=== PATIENT | female | born 1960 | race Caucasian/White ===

== ENCOUNTER 2018-08-12 09:46 | Emergency (ER) | payer SELFPAY ==
[~2018-08-12] VITALS: Ht 170.2 cm; Wt 90.7 kg
[2018-08-12] MEDS ORDERED: MORPHINE SULFATE 4 MG/ML VIAL. IV ONE (10:30)
[2018-08-12] MEDS ORDERED: IV NORMAL SALINE 1000ML BAG 1,000 ML IV ONE (10:30)
[2018-08-12 10:45] LABS: BASO % 0 % (0-3); EOS # 0.1 x10^3/uL (0.0-0.7); EOS % 1 % (0-3); HEMATOCRIT 38.4 % (36.0-47.0); HEMOGLOBIN 13.4 g/dL (12.0-15.5); LYMPH # 2.4 x10^3/uL (1.0-4.8); LYMPH % 35 % (24-48); MEAN CORPUSCULAR HEMOGLOBIN 33 pg (25-35); MEAN CORPUSCULAR HGB CONC 35 g/dL (31-37); MEAN CORPUSCULAR VOLUME 96 fL (79-100); MONO # 0.3 x10^3/uL (0.0-1.1); MONO % 5 % (0-9); NEUT % 58 % (31-73); PLATELET COUNT 259 x10^3/uL (140-400); RED BLOOD COUNT 4.01 x10^6/uL (3.50-5.40); RED CELL DISTRIBUTION WIDTH 13.4 % (11.5-14.5); WHITE BLOOD COUNT 6.8 x10^3/uL (4.0-11.0)
[2018-08-12] MEDS ORDERED: LAMO100T PO (10:49)
[2018-08-12] MEDS ORDERED: MELO15TA23 PO (10:49)
[2018-08-12] MEDS ORDERED: HYDR25TA9 PO (10:49)
[2018-08-12] MEDS ORDERED: TRAZ150T49 PO (10:49)
[2018-08-12] MEDS ORDERED: FISH1CAP PO (10:49)
[2018-08-12] MEDS ORDERED: GARL10002 PO (10:49)
[2018-08-12] MEDS ORDERED: ALPR1TAB6 PO (10:49)
[2018-08-12] MEDS ORDERED: BUPR300T4 PO (10:49)
--- NOTE | 2018-08-12 10:51 | PHYS DOC ---
Past Medical History Past Medical History: No Pertinent History Past Surgical History: Other Additional Past Surgical Histo: Exp.lap.,L)Great toe bones removed. Additional Information: "Maybe 5 cigarettes a day, depending on the day." Alcohol Use: None Drug Use: Marijuana Social History Narrative: Last smoked about a month ago. Adult General Chief Complaint Chief Complaint: ABDOMINAL PAIN HPI HPI Patient is a 57 year old female who presents with abdominal pain. The patient states she has been having abdominal pain for the last 5 years. She has not seen a physician for this complaint. She states she has pain almost daily. Her pain is diffuse and not associated with eating food. She came to the ER today because over the last week her pain symptoms have worsened. She has no nausea or vomiting. She did have some constipation last week which has resolved with her last normal bowel movement being yesterday. Denies urinary symptoms. No flank pain. Her only surgical history is positive for prior laparoscopic surgery for ovarian cyst. Review of Systems Review of Systems Constitutional: Denies fever Eyes: Denies change in visual acuity HENT: Denies nasal congestion Respiratory: Denies cough or shortness of breath Cardiovascular: No additional information not addressed in HPI GI: as documented above : Denies dysuria Musculoskeletal: Denies back pain or joint pain Integument: Denies rash or skin lesions Neurologic: Denies headache Endocrine: Denies polyuria All other systems were reviewed and found to be within normal limits, except as documented in this note. Current Medications Current Medications Current Medications Medications (Trade) Dose Ordered Sig/Enoc Start Time Stop Time Status Last Admin Dose Admin Info (CONTRAST GIVEN -- Rx MONITORING) 1 each PRN DAILY PRN 08/12/18 11:00 08/14/18 10:59 Iohexol (Omnipaque 300 Mg/ml) 75 ml 1X ONCE 08/12/18 11:00 08/12/18 11:01 DC 08/12/18 11:11 75 ML Morphine Sulfate (Morphine Sulfate) 4 mg 1X ONCE 08/12/18 10:30 08/12/18 10:41 DC 08/12/18 11:02 4 MG Sodium Chloride 1,000 ml @ 1,000 mls/hr 1X ONCE 08/12/18 10:30 08/12/18 11:29 DC 08/12/18 11:00 1,000 MLS/HR Allergies Allergies Allergies Coded Allergies Type Severity Reaction Last Updated Verified levofloxacin Adverse Reaction Unknown Joint pain. 08/12/18 Yes Physical Exam Physical Exam Constitutional: Well developed, well nourished, no acute distress, non-toxic appearance HENT: Normocephalic, atraumatic, bilateral external ears normal, oropharynx moist Eyes: PERRLA, EOMI, conjunctiva normal Neck: Normal range of motion, no tenderness Cardiovascular:Heart rate regular rhythm, no murmur Lungs & Thorax: Bilateral breath sounds clear to auscultation Abdomen: Bowel sounds normal. Soft, diffusely tender but no guarding or rebound Skin: Warm, dry, no erythema Back: No tenderness Extremities: No edema Neurologic: Alert and oriented X 3 Psychologic: Affect normal Current Patient Data Vital Signs Vital Signs Date Time Temp Pulse Resp B/P (MAP) Pulse Ox O2 Delivery O2 Flow Rate FiO2 08/12/18 11:02 16 97 Room Air 08/12/18 10:12 98.1 93 165/80 (108) 98.1 Lab Values Laboratory Tests Test 08/12/18 10:28 White Blood Count 6.8 x10^3/uL (4.0-11.0) Red Blood Count 4.01 x10^6/uL (3.50-5.40) Hemoglobin 13.4 g/dL (12.0-15.5) Hematocrit 38.4 % (36.0-47.0) Mean Corpuscular Volume 96 fL (79-100) Mean Corpuscular Hemoglobin 33 pg (25-35) Mean Corpuscular Hemoglobin Concent 35 g/dL (31-37) Red Cell Distribution Width 13.4 % (11.5-14.5) Platelet Count 259 x10^3/uL (140-400) Neutrophils (%) (Auto) 58 % (31-73) Lymphocytes (%) (Auto) 35 % (24-48) Monocytes (%) (Auto) 5 % (0-9) Eosinophils (%) (Auto) 1 % (0-3) Basophils (%) (Auto) 0 % (0-3) Neutrophils # (Auto) 4.0 x10^3uL (1.8-7.7) Lymphocytes # (Auto) 2.4 x10^3/uL (1.0-4.8) Monocytes # (Auto) 0.3 x10^3/uL (0.0-1.1) Eosinophils # (Auto) 0.1 x10^3/uL (0.0-0.7) Basophils # (Auto) 0.0 x10^3/uL (0.0-0.2) Sodium Level 134 mmol/L (136-145) L Potassium Level 3.9 mmol/L (3.5-5.1) Chloride Level 97 mmol/L (98-107) L Carbon Dioxide Level 29 mmol/L (21-32) Anion Gap 8 (6-14) Blood Urea Nitrogen 10 mg/dL (7-20) Creatinine 0.9 mg/dL (0.6-1.0) Estimated GFR (Cockcroft-Gault) 65.0 Glucose Level 118 mg/dL (70-99) H Calcium Level 9.3 mg/dL (8.5-10.1) Total Bilirubin 0.2 mg/dL (0.2-1.0) Direct Bilirubin 0.1 mg/dL (0.0-0.2) Aspartate Amino Transferase (AST) 12 U/L (15-37) L Alanine Aminotransferase (ALT) 23 U/L (14-59) Alkaline Phosphatase 76 U/L (46-116) Total Protein 6.8 g/dL (6.4-8.2) Albumin 3.5 g/dL (3.4-5.0) Lipase 125 U/L (73-393) Laboratory Tests 08/12/18 10:28 Laboratory Tests 08/12/18 10:28 EKG EKG [] Radiology/Procedures Radiology/Procedures FINDINGS: Bilateral partially visualized are breast implants. Heart is normal in size. No pericardial or pleural effusion. Clear lung bases. Liver, spleen, pancreas, adrenals within normal limits. Single gallstone noted. No pericholecystic fluid or gallbladder wall thickening. No nephrolithiasis or hydronephrosis. No free pelvic fluid or ascites. No enlarged retroperitoneal, pelvic or inguinal adenopathy. No bowel obstruction. Normal appendix. Anteverted uterus. Urinary bladder is within normal limits. No suspicious bony lesion. IMPRESSION: 1. Cholelithiasis without imaging evidence of acute cholecystitis. Course & Med Decision Making Course & Med Decision Making Pertinent Labs and Imaging studies reviewed. (See chart for details) 10:30: Patient is seen and examined. She is in no acute distress. She is requesting evaluation for a chronic complaint. Standard abdominal pain workup is ordered. Medications for pain. 13:45: All results are reviewed. CT scan of the abdomen pelvis as documented above. Patient does have cholelithiasis. With further discussion, the patient does endorse that her symptoms are primarily worse after she eats food. Patient states she does not currently have insurance but she will after the first of the year. Patient is advised to follow-up at that time on an elective basis with general surgery for consideration of cholecystectomy. No additional acute cause of pain was identified today. Patient was also advised to return to the ER for any new or worsening symptoms, fever, severe pain, or change in her symptoms. Dragon Disclaimer Dragon Disclaimer This electronic medical record was generated, in whole or in part, using a voice recognition dictation system. Departure Departure Disposition: 01 HOME, SELF-CARE Admitting Physician: Other Condition: GOOD Scripts Hydrocodone/Apap 5-325 (NORCO 5-325 TABLET) 1 Each Tablet 1-2 EACH PO PRN Q6HRS PRN for PAIN, #15 as needed for pain Prov: CRISTO OSMAN DO 08/12/18 CRISTO OSMAN DO Aug 12, 2018 10:51
[2018-08-12 10:53] LABS: CALCIUM 9.3 mg/dL (8.5-10.1); CREATININE 0.9 mg/dL (0.6-1.0); POTASSIUM 3.9 mmol/L (3.5-5.1)
[2018-08-12 10:59] LABS: ALBUMIN 3.5 g/dL (3.4-5.0); DIRECT BILIRUBIN 0.1 mg/dL (0.0-0.2); TOTAL BILIRUBIN 0.2 mg/dL (0.2-1.0); TOTAL PROTEIN 6.8 g/dL (6.4-8.2)
[2018-08-12] MEDS ORDERED: IOHEXOL 300 MG/ML 100ML VIAL. IV ONE (11:00)
[2018-08-12] MEDS ORDERED: CONTRAST GIVEN. MC PRN (11:00)
--- NOTE | 2018-08-12 11:35 | RAD ---
PQRS Compliance statement: One or more of the following individualized dose reduction techniques were utilized for this examination: 1. Automated exposure control. 2. Adjustment of the mA and/or kV according to patient size. 3. Use of iterative reconstruction technique. Indication:ABD PAIN X 2 WEEKS TECHNIQUE: CT abdomen and pelvis with IV contrast with multiplanar reformats. COMPARISON: None FINDINGS: Bilateral partially visualized are breast implants. Heart is normal in size. No pericardial or pleural effusion. Clear lung bases. Liver, spleen, pancreas, adrenals within normal limits. Single gallstone noted. No pericholecystic fluid or gallbladder wall thickening. No nephrolithiasis or hydronephrosis. No free pelvic fluid or ascites. No enlarged retroperitoneal, pelvic or inguinal adenopathy. No bowel obstruction. Normal appendix. Anteverted uterus. Urinary bladder is within normal limits. No suspicious bony lesion. IMPRESSION: 1. Cholelithiasis without imaging evidence of acute cholecystitis. Electronically signed by: Zane Nicole DO (08/12/2018 11:32 AM) [id number]
[2018-08-12 13:11] LABS: BILIRUBIN,URINE NEGATIVE (NEG); CLARITY,URINE CLEAR; COLOR,URINE YELLOW; NITRITE,URINE NEGATIVE (NEG); PROTEIN,URINE NEGATIVE (NEG-TRACE); UROBILINOGEN,URINE 0.2 mg/dL (0.2 mg/dL)
[2018-08-12 13:30] VITALS: BP 146/82
[2018-08-12] MEDS ORDERED: HYDR-3164 PO (13:41)
[2018-08-12 13:51] LABS: BACTERIA,URINE 0 /HPF (0-FEW); RBC,URINE OCC /HPF (0-2); SQUAMOUS EPITHELIAL CELL,UR MOD /LPF; WBC,URINE OCC /HPF (0-4)
== END 2018-08-12 14:44 | disposition home or self-care (01) ==
LOC: ER 09:46
DX: K80.20 Calculus of gallbladder without cholecystitis without obstruction (principal); F17.210 Nicotine dependence, cigarettes, uncomplicated; Z88.1 Allergy status to other antibiotic agents
CPT/HCPCS: 36415; 74177; 80048; 80076; 81001; 83690; 85025; 96374; 99285; J2270; J7030; Q9967

== ENCOUNTER → 2018-10-22 | Day surgery (SDC) | payer BC ==
[~2018-10-22] VITALS: Ht 170.2 cm; Wt 92.5 kg
[~2018-10-22] MED LIST: ALPR1TAB6 PO; BUPIVAC MPF-EPI 0.5%-1:200000 30 ML VIAL. ONE; BUPR300T4 PO; DESFLURANE 31 TO 60 MINUTES IH ONE; DEXAMETHASONE SOD PHOS 20 MG/5 ML VIAL. ONE; FAMOTIDINE 20 MG/2 ML VIAL ONE; FISH1CAP PO; GARL10002 PO; GLYCOPYRROLATE 1 MG/5 ML VIAL. ONE; HYDR-2145 PO; HYDR-3164 PO; HYDROmorphone 2 MG/ML VIAL IV PRN; IOHEXOL 300 MG/ML 100ML VIAL. ONE; IPRATRPIUM/ALBUTEROL 0.5/2.5MG 3 ML NEBU. NEB ONE; IPRATRPIUM/ALBUTEROL 0.5/2.5MG 3 ML NEBU. ONE; IV RINGERS,LACTATED 1000ML 1,000 ML IV SCH; LAMO100T PO; LIDOCAINE 1% PF 2 ML VIAL. ID PRN; LIDOCAINE 2% PF Vial for OR 5 ML VIAL. ONE; MELO15TA23 PO; MORPHINE SULFATE 4 MG/ML VIAL. IV PRN; NEOSTIGMINE 10 MG/10 ML VIAL. ONE; ONDANSETRON PF 4 MG/2 ML VIAL. IV PRN; ONDANSETRON PF 4 MG/2 ML VIAL. ONE; OXYC1TAB15 PO; PROCHLORPERAZINE 10 MG/2 ML VIAL. IV PRN; PROPOFOL 20 ML IV ONE; ROCURONIUM 50 MG/5 ML VIAL. ONE; SUCCINYLCHOLINE 200 MG/10 ML VIAL. ONE; SURGICEL HEMOSTAT 4X8 EACH. ONE; TRAZ150T49 PO; ePHEDrine PF IN SALINE 50 MG/5 ML DISP.SYRIN IV ONE; fentaNYL PF VIAL 100 MCG/2 ML VIAL IV PRN; fentaNYL PF VIAL 100 MCG/2 ML VIAL ONE; oxyCODONE/APAP 5/325 1 TAB TABLET PO ONE; oxyCODONE/APAP 5/325 1 TAB TABLET PO PRN
--- NOTE | 2018-10-22 09:59 | PDOC4 ---
Operative Note Operative Note Date: 10/22/2018 Preoperative diagnosis: Chronic cholecystitis Postoperative diagnosis: Same Procedure: Laparoscopic cholecystectomy Specimen: Gallbladder Surgeon: Rich Dictation: Patient is 58-year-old female is had right upper quadrant abdominal pain nausea vomiting postprandial and a CT scan showing gallstones with mildly thickened gallbladder wall. Procedure of laparoscopic cholecystectomy was explained to the patient in detail risk benefits were also discussed including bleeding infection injury to intra-abdominal contents possibly necessitating further open operations. The patient seemed to understand and gave both verbal and written consent had procedure performed. Patient was taken to the operating room placed in supine position general anesthesia was initiated once patient was asleep and intubated her abdomen was prepped and draped usual sterile fashion using ChloraPrep. The umbilicus was injected with quarter percent Marcaine with epinephrine incision was made 11 blade scalpel rubbers needle was placed within the abdomen creating pneumoperitoneum once this was complete 11 mm port was placed and a 5 mm camera was placed within the abdomen. A 5 mm port was placed in the epigastrium a 5 mm port was placed in the right lateral abdomen and one in the right mid abdomen all under direct visualization the dome of the gallbladder was grasped and retracted cephalad exposing the triangle that here tissues the triangle were taken down bluntly dissection exposing the cystic duct and cystic artery both were doubly clipped and transected the gallbladder was taken off the liver with hook electrocautery placed in Endo Catch bag and removed from the umbilicus. The right upper quadrant was irrigated and suctioned dry hemostasis was deemed to be appropriate and the pneumoperitoneum was reduced all ports were removed fascial defect at the umbilicus closed with [id number] 0 Vicryl suture and the skin was reapproximated all port sites with 40 subarticular Monocryl Mastisol Steri-Strips and island dressings were applied. Patient was awakened and extubated in the operating room taken to recovery in stable condition all sponge instrument needle counts listed as correct S Dela Cruz blood loss 5 mL ANAMIKA CORTES MD Oct 22, 2018 09:59
--- NOTE | 2018-10-22 10:00 | DISCH ---
DISCHARGE INSTRUCTIONS Condition on Discharge Condition on Discharge: Stable Activity After Discharge Activity Instructions for Disc: Avoid exertion Other activity instructions: no lifting more than 20 pounds for 2 weeks Diet after Discharge Diet after Discharge: Low Fat Wound Incision Care Other wound/incision instructi: May shower in 24 hours Contacting the after DC Call your doctor for: If your condition worsens Follow-Up Follow up with: Dr. Cortes in 2 weeks ANAMIKA CORTES MD Oct 22, 2018 10:00
[2018-10-22] MEDS: fentaNYL PF VIAL 100 MCG/2 ML VIAL IV PRN ×4 (10:15→10:36)
[2018-10-22 12:00] VITALS: BP 122/61
--- NOTE | 2018-10-23 16:09 | PATHOLOGY ---
[facility] Accession Number: [id number] . 01 Material submitted: . GALLBLADDER . 01 Clinical history: . Cholelithiasis. . 02 Diagnosis: Gallbladder, laparoscopic cholecystectomy: - Cholelithiasis. 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 (JPM:pv design and installation technician; 10/23/2018) MBR/10/23/2018 . 02 Comment: There is no evidence of malignancy. (JPM:pv design and installation technician; 10/23/2018) . 02 Electronically signed: . Beck Cagle MD, Pathologist NPI- [id number] . 01 Gross description: . Received in formalin labeled "Izabel Gannon, gallbladder" is an intact cholecystectomy specimen measuring 7.0 x 2.6 x 2.5 cm. The serosa is pink-currie and focally hemorrhagic. The specimen is opened to reveal opaque yellow-currie thick bile with numerous multifaceted calculi measuring in aggregate 4.0 x 3.5 x 1.0 cm and ranging from 0.1-0.7 cm in greatest dimension. The gallbladder mucosa is pink-white and trabeculated with focal hemorrhagic areas. The wall thickness ranges from 0.1-0.3 cm. No polyps or masses are grossly identified. Boilermaker'S Assistant sections of the fundus and body and the cystic duct margin are submitted in cassette A1. ([facility] [place]; 10/22/2018) SYC/SYC . 02 Pathologist provided ICD-10: K80.10 . 02 CPT . 894999 Specimen Comment: A courtesy copy of this report has been sent to Specimen Comment: [phone], . Specimen Comment: Report sent to / DR SERRA Specimen Comment: A duplicate report has been generated due to demographic updates. Performed at: 01 [facility] [address] [facility] [address] [place], [place] [id number] MD Flaco Fowler MD Phone: [phone] Performed at: 02 [facility] [address] [place], [place] [id number] MD Beck Cagle MD Phone: [phone]
== END | disposition home or self-care (01) ==
LOC: SURG 08:01
PROVIDERS: ATTEND Surgery
DX: K80.10 Calculus of gallbladder with chronic cholecystitis without obstruction (principal); Z88.1 Allergy status to other antibiotic agents; Z79.899 Other long term (current) drug therapy; Z98.890 Other specified postprocedural states; Z82.49 Family history of ischemic heart disease and other diseases of the circulatory system; Z83.3 Family history of diabetes mellitus; Z82.61 Family history of arthritis; Z82.0 Family history of epilepsy and other diseases of the nervous system; F17.210 Nicotine dependence, cigarettes, uncomplicated; Z84.1 Family history of disorders of kidney and ureter; F12.10 Cannabis abuse, uncomplicated
CPT/HCPCS: 47562; A7015; J0330; J0696; J1100; J2001; J2270; J2405; J2704; J2710; J3010; J3490; J7030; J7620; Q9967

== ENCOUNTER 2018-10-23 13:33 | Emergency (ER) | payer BC ==
[~2018-10-23] VITALS: Ht 170.2 cm; Wt 90.7 kg
[~2018-10-23 13:33] MED LIST changes: -BUPIVAC MPF-EPI 0.5%-1:200000 30 ML VIAL. ONE; -DESFLURANE 31 TO 60 MINUTES IH ONE; -DEXAMETHASONE SOD PHOS 20 MG/5 ML VIAL. ONE; -FAMOTIDINE 20 MG/2 ML VIAL ONE; -GLYCOPYRROLATE 1 MG/5 ML VIAL. ONE; -HYDROmorphone 2 MG/ML VIAL IV PRN; -IOHEXOL 300 MG/ML 100ML VIAL. ONE; -IPRATRPIUM/ALBUTEROL 0.5/2.5MG 3 ML NEBU. NEB ONE; -IPRATRPIUM/ALBUTEROL 0.5/2.5MG 3 ML NEBU. ONE; -IV RINGERS,LACTATED 1000ML 1,000 ML IV SCH; -LIDOCAINE 1% PF 2 ML VIAL. ID PRN; -LIDOCAINE 2% PF Vial for OR 5 ML VIAL. ONE; -MORPHINE SULFATE 4 MG/ML VIAL. IV PRN; -NEOSTIGMINE 10 MG/10 ML VIAL. ONE; -ONDANSETRON PF 4 MG/2 ML VIAL. IV PRN; -ONDANSETRON PF 4 MG/2 ML VIAL. ONE; -PROCHLORPERAZINE 10 MG/2 ML VIAL. IV PRN; -PROPOFOL 20 ML IV ONE; -ROCURONIUM 50 MG/5 ML VIAL. ONE; -SUCCINYLCHOLINE 200 MG/10 ML VIAL. ONE; -SURGICEL HEMOSTAT 4X8 EACH. ONE; -ePHEDrine PF IN SALINE 50 MG/5 ML DISP.SYRIN IV ONE; -fentaNYL PF VIAL 100 MCG/2 ML VIAL IV PRN; -fentaNYL PF VIAL 100 MCG/2 ML VIAL ONE; -oxyCODONE/APAP 5/325 1 TAB TABLET PO ONE; -oxyCODONE/APAP 5/325 1 TAB TABLET PO PRN
[2018-10-23 17:06] LABS: BILIRUBIN,URINE NEGATIVE (NEG); CLARITY,URINE CLEAR; COLOR,URINE YELLOW; NITRITE,URINE NEGATIVE (NEG); PH,URINE 6.5; PROTEIN,URINE NEGATIVE (NEG-TRACE)
--- NOTE | 2018-10-23 17:12 | PHYS DOC ---
Past Medical History Past Medical History: Bipolar Past Surgical History: Other Additional Past Surgical Histo: Exp.lap.,L)Great toe bones removed.; GALL BLADDER REMOVED 10-22-18 Alcohol Use: None Drug Use: Marijuana Adult General Chief Complaint Chief Complaint: URINARY RETENTION [facility] HPI Patient is a 58 year old female who presents with patient had a cholecystectomy yesterday by Dr. Villanueva. It was outpatient. Last night at 2300 she was able to urinate but she has not been able to urinate since then. Patient states she has generalized abdominal pressure and bloating. Patient rates her pain an 8 out of 10. She denies fever. She states that she's been eating and drinking and not vomiting. Patient states she last took a pain pill at 06 30 this morning. I did ask if patient wanted more pain medication and she refused any medication at this time. Review of Systems Review of Systems Constitutional: Denies fever or chills [] Eyes: Denies change in visual acuity, redness, or eye pain [] HENT: Denies nasal congestion or sore throat [] Respiratory: Denies cough or shortness of breath [] Cardiovascular: No additional information not addressed in HPI [] GI: Denies abdominal pain, nausea, vomiting, bloody stools or diarrhea [] : dysuria. Denies hematuria [] Musculoskeletal: Denies back pain or joint pain [] Integument: Denies rash or skin lesions [] Neurologic: Denies headache, focal weakness or sensory changes [] All other systems were reviewed and found to be within normal limits, except as documented in this note. Allergies Allergies Allergies Coded Allergies Type Severity Reaction Last Updated Verified levofloxacin Adverse Reaction Unknown Joint pain. 10/22/18 Yes Physical Exam Physical Exam Constitutional: Well developed, well nourished, no acute distress, non-toxic appearance. [] HENT: Normocephalic, atraumatic, bilateral external ears normal, oropharynx moist, no oral exudates, nose normal. [] Eyes: PERRLA, EOMI, conjunctiva normal, no discharge. [] Neck: Normal range of motion, no tenderness, supple, no stridor. [] Cardiovascular:Heart rate regular rhythm, no murmur [] Lungs & Thorax: Bilateral breath sounds clear to auscultation [] Abdomen: Bowel sounds normal, soft, no tenderness, no masses, no pulsatile masses. Urinary retention. [] Skin: Warm, dry, no erythema, no rash. [] Back: No tenderness, no CVA tenderness. [] Extremities: No tenderness, no cyanosis, no clubbing, ROM intact, no edema. [] Neurologic: Alert and oriented X 3, normal motor function, normal sensory function, no focal deficits noted. [] Psychologic: Affect normal, judgement normal, mood normal. [] Current Patient Data Vital Signs Vital Signs Date Time Temp Pulse Resp B/P (MAP) Pulse Ox O2 Delivery O2 Flow Rate FiO2 10/23/18 16:00 98.0 89 16 137/82 (100) 98 Room Air 98.0 Lab Values Laboratory Tests Test 10/23/18 16:53 Urine Collection Type Unknown Urine Color Yellow Urine Clarity Clear Urine pH 6.5 Urine Specific [place] 1.020 Urine Protein Negative mg/dL (NEG-TRACE) Urine Glucose (UA) Negative mg/dL (NEG) Urine Ketones (Stick) Negative mg/dL (NEG) Urine Blood Negative (NEG) Urine Nitrite Negative (NEG) Urine Bilirubin Negative (NEG) Urine Urobilinogen Dipstick 1.0 mg/dL (0.2 mg/dL) Urine Leukocyte Esterase Negative (NEG) Urine RBC 1-2 /HPF (0-2) Urine WBC 1-4 /HPF (0-4) Urine Squamous Epithelial Cells Few /LPF Urine Bacteria 0 /HPF (0-FEW) Urine Hyaline Casts Few /HPF Urine Mucus Mod /LPF EKG EKG [] Radiology/Procedures Radiology/Procedures [] Course & Med Decision Making Course & Med Decision Making Patient is a 58 year old female who presents with patient had a cholecystectomy yesterday by Dr. Villanueva. It was outpatient. Last night at 2300 she was able to urinate but she has not been able to urinate since then. Patient states she has generalized abdominal pressure and bloating. Patient rates her pain an 8 out of 10. She denies fever. She states that she's been eating and drinking and not vomiting. Patient states she last took a pain pill at 06 30 this morning. I did ask if patient wanted more pain medication and she refused any medication at this time. Alert and oriented. Denies any nausea vomiting or abdominal pain just general discomfort and pressure. Incisions are not draining and they're covered with surgical bandage which I did not take off. Abdomen is soft but slightly distended. Patient denies any nausea, vomiting , diarrhea, fever, chest pain, shortness of air. Patient is bladder scanned and there is 262 mL in her bladder. Patient has a Bedoya catheter placed with a leg bag. I have talked to Dr. Matias who is on-call for Dr. Villanueva and he states to place the Bedoya Catheter with leg bag and to call urology for follow up. I have spoken to Dr Larios from Urology and he states to have the patient call the office on Friday for follow up. Patient states the catheter is uncomfortable she does not want to use a catheter. I told the patient that if she can't urinate that she will Back in the ER to have another visit and another catheter placed and they want to do the same thing. Patient is given some viscous lidocaine to apply to the area. Bedoya catheter is draining. Dragon Disclaimer Dragon Disclaimer This electronic medical record was generated, in whole or in part, using a voice recognition dictation system. Departure Departure Impression: Primary Impression: Urinary retention Disposition: 01 HOME, SELF-CARE Condition: STABLE Referrals: ACE SERRA MD (PCP) JENA LARIOS MD Patient Instructions: Urinary Retention, Acute, Female Additional Instructions: Call urology on Friday. Drink plenty of fluids. Call if bladder not draining appropriately or fever or nausea or vomiting. DERIK BARROW APRN Oct 23, 2018 17:12
[2018-10-23 17:27] LABS: BACTERIA,URINE 0 /HPF (0-FEW); HYALINE CASTS, URINE FEW /HPF; SQUAMOUS EPITHELIAL CELL,UR FEW /LPF
[2018-10-23] MEDS ORDERED: LIDOCAINE 2% VISCOUS 15 ML SOLUTION. SWSW ONE (17:45)
[2018-10-23 18:00] VITALS: BP 151/85
== END 2018-10-23 18:09 | disposition home or self-care (01) ==
LOC: ER 13:33
DX: R33.9 Retention of urine, unspecified (principal); R14.0 Abdominal distension (gaseous); F31.9 Bipolar disorder, unspecified; Z90.49 Acquired absence of other specified parts of digestive tract; Z88.1 Allergy status to other antibiotic agents
CPT/HCPCS: 51702; 81001; 99284

== ENCOUNTER 2019-01-26 16:00 | Inpatient (IN) | payer BC ==
[~2019-01-26] VITALS: Ht 170.2 cm; Wt 89.1 kg
[2019-01-26] MEDS ORDERED: fentaNYL PF VIAL 100 MCG/2 ML VIAL IV PRN (19:30)
[2019-01-26 21:07] VITALS: BP 141/84
--- NOTE | 2019-01-26 21:22 | RAD ---
PORTABLE CHEST 1V History: CHEST PAIN, SOA, LEG SWELLING X1 DAY. No comparison. There are breast implants. No evidence of pneumothorax or focal infiltrate. No large effusion. Small nodular density at the right midlung may represent a granuloma. Regional skeleton appears grossly intact IMPRESSION: 1. No consolidating infiltrate. 2. Small dense nodule right midlung. This may represent a granuloma, if any prior outside chest x-rays are available that would be helpful for comparison. Electronically signed by: Baljeet Anderson MD (01/26/2019 9:19 PM) [facility]
[2019-01-26 21:29] LABS: ALBUMIN 4.3 g/dL (3.4-5.0); CALCIUM 9.6 mg/dL (8.5-10.1); CREATININE 0.8 mg/dL (0.6-1.0); DIRECT BILIRUBIN 0.1 mg/dL (0.0-0.2); GFR 74.2; POTASSIUM 4.3 mmol/L (3.5-5.1); TOTAL BILIRUBIN 0.4 mg/dL (0.2-1.0); TOTAL PROTEIN 7.7 g/dL (6.4-8.2)
[2019-01-26] MEDS ORDERED: oxyCODONE/APAP 5/325 1 TAB TABLET PO PRN (22:00)
[2019-01-26] MEDS ORDERED: oxyCODONE IR 5 MG TABLET PO PRN (22:15)
[2019-01-26] MEDS ORDERED: NICOTINE 14MG PATCH. TD PRN (22:30)
[2019-01-26] MEDS: traZODone 50 MG TABLET. PO SCH (22:32)
[2019-01-26] MEDS: buPROPion SR 150 MG TABLET.SA PO SCH ×2 (22:33→22:43)
[2019-01-26] MEDS: ALPRAZolam 1 MG TABLET PO PRN (22:37)
--- NOTE | 2019-01-26 22:54 | PDOC1 ---
History and Physical Date of Admission Date of Admission DATE: 01/26/19 TIME: 22:46 Source Source: Patient History of Present Illness History of Present Illness chest pain, left sided with pressure, pain 6/10, pain worse with exertion, some pain with movement, but she consistently described it as pressure. and deep or dull pain,. ; Pain to the left side of her chest, does not radiate to neck, she had taken percocets a long time ago after surgery adn she reports that is just made her feel anxious. no nausea, no diaphoresis. Past Medical History Cardiovascular: No pertinent hx Pulmonary: No pertinent hx GI: No pertinent hx Heme/Onc: No pertinent hx Past Surgical History Past Surgical History: Cholecystectomy Family History Family History: Cancer, Diabetes, Heart Disease Family History: Parent, Grandparents Social History Smoke: <1 pack per day ALCOHOL: rare Drugs: None Current Medications Current Medications Current Medications Fentanyl Citrate (Fentanyl 2ml Vial) 50 mcg PRN Q1HR PRN IV PAIN; Start 01/26/19 at 19:30; Stop 01/27/19 at 19:29 Alprazolam (Xanax) 1 mg PRN Q6HRS PRN PO ANXIETY / AGITATION Last administered on 01/26/19at 22:37; Start 01/26/19 at 22:00 Hydrochlorothiazide (Hydrodiuril) 25 mg DAILY PO ; Start 01/27/19 at 09:00 Oxycodone/ Acetaminophen (Percocet 5/325) 1 tab PRN Q6HRS PRN PO SEVERE PAIN; Start 01/26/19 at 22:00; Stop 01/26/19 at 22:43; Status DC Lamotrigine (LaMICtal) 100 mg DAILY PO ; Start 01/27/19 at 09:00 Meloxicam (Mobic) 15 mg DAILY PO ; Start 01/27/19 at 09:00 Trazodone HCl (Desyrel) 150 mg QHS PO Last administered on 01/26/19at 22:32; Start 01/26/19 at 23:00 Bupropion HCl (Wellbutrin Sr) 150 mg BID PO ; Start 01/26/19 at 23:00; Stop 01/27/19 at 09:00 Oxycodone HCl (Roxicodone) 10 mg PRN Q6HRS PRN PO SEVERE PAIN; Start 01/26/19 at 22:15; Stop 01/26/19 at 22:43; Status DC Bupropion HCl (Wellbutrin Sr) 150 mg DAILY PO ; Start 01/27/19 at 09:00; Status UNV Lidocaine (Lidoderm) 1 patch 1X STAT TD ; Start 01/26/19 at 22:28; Stop 01/26/19 at 22:29; Status UNV Nicotine (Nicoderm Cq 14mg) 1 patch PRN DAILY PRN TD SMOKING CESSATION; Start 01/26/19 at 22:30; Status UNV Active Scripts Active Reported Percocet 5-325 Mg Tablet (Oxycodone/Acetaminophen) 1 Each Tablet 1-2 Tab PO PRN Q6HRS PRN LAST DOSE GIVEN: Fish Oil 1,200 Mg Fish Oil (Fish Oil/Dha/Epa) 1 Each Capsule 1 Each PO Garlic 1,000 Mg Capsule 1,000 Mg PO Hydrochlorothiazide Tablet (Hydrochlorothiazide) 25 Mg Tablet 25 Mg PO DAILY Bupropion Xl (Bupropion Hcl) 300 Mg Tab.er.24h 300 Mg PO Lamotrigine 100 Mg Tablet 100 Mg PO DAILY Alprazolam 1 Mg Tablet 1 Mg PO PRN Q6HRS PRN Meloxicam 15 Mg Tablet 15 Mg PO DAILY Trazodone Hcl 150 Mg Tablet 150 Mg PO HS Allergies Allergies: Coded Allergies: levofloxacin (Verified Adverse Reaction, Unknown, Joint pain., 10/22/18) ROS General: No: Chills, Fatigue, Malaise, Appetite, Other PSYCHOLOGICAL ROS: YES: Anxiety; No: Behavioral Disorder, Concentration difficultie, Decreased libido, Depression, Disorientation, Hallucinations, Hostility, Irritablity, Memory difficulties, Mood Swings, Obsessive thoughts, Physical abuse, Sexual abuse, Sleep disturbances, Suicidal ideation, Other Eyes: No Blurry vision, No Decreased vision, No Double vision, No Dry eyes, No Excessive tearing, No Eye Pain, No Itchy Eyes, No Loss of vision, No Photophobia, No Scotomata, No Uses contacts, No Uses glasses, No Other HEENT: No: Heacaches, Visual Changes, Hearing change, Nasal congestion, Nasal discharge, Oral lesions, Sinus pain, Sore Throat, Epistaxis, Sneezing, Snoring, Tinnitus, Vertigo, Vocal changes, Other Respiratory: No: Cough, Hemoptysis, Orthopnea, Pleuritic Pain, Shortness of breath, SOB with excertion, Sputum Changes, Stridor, Tachypnea, Wheezing, Other Cardiovascular: yes Chest Pain Gastrointestinal: No Nausea, No Vomiting, No Abdominal Pain, No Diarrhea, No Constipation, No Melena, No Hematochezia, No Other Genitourinary: No Dysuria, No Frequency, No Incontinence, No Hematuria, No Retention, No Discharge, No Urgency, No Pain, No Flank Pain, No Other, No , No , No , No , No , No , No Musculoskeletal: No Gait Disturbance, No Joint Pain, No Joint Stiffness, No Joint Swelling, No Muscle Pain, No Muscular Weakness, No Pain In:, No Swelling In:, No Other Neurological: No Behavorial Changes, No Bowel/Bladder ControlChng, No Confusion, No Dizziness, No Gait Disturbance, No Headaches, No Impaired Coord/balance, No Memory Loss, No Numbness/Tingling, No Seizures, No Speech Problems, No Tremors, No Visual Changes, No Weakness, No Other Skin: No Dry Skin, No Eczema, No Hair Changes, No Lumps, No Mole Changes, No Mottling, No Nail Changes, No Pruritus, No Rash, No Skin Lesion Changes, No Other, No Acne Physical Exam General: Alert, Cooperative, mild distress HEENT: Atraumatic, PERRLA, Mucous membr. moist/pink Lungs: Clear to auscultation Heart: S1S2, no gallops, no murmurs Abdomen: Normal bowel sounds, Soft Extremities: No cyanosis, Normal pulses Skin: No breakdown Neuro: Normal speech, Sensation intact, Cranial nerves 3-12 NL Psych/Mental Status: Mood NL Vitals Vitals Vital Signs Date Time Temp Pulse Resp B/P (MAP) Pulse Ox O2 Delivery O2 Flow Rate FiO2 01/26/19 22:10 Room Air 01/26/19 21:07 97.6 78 18 141/84 (103) 97 97.6 Labs Labs Laboratory Tests Test 01/26/19 17:35 01/26/19 22:20 Sodium Level 127 mmol/L (136-145) Potassium Level 4.3 mmol/L (3.5-5.1) Chloride Level 91 mmol/L (98-107) Carbon Dioxide Level 31 mmol/L (21-32) Anion Gap 5 (6-14) Blood Urea Nitrogen 9 mg/dL (7-20) Creatinine 0.8 mg/dL (0.6-1.0) Estimated GFR (Cockcroft-Gault) 74.2 Glucose Level 114 mg/dL (70-99) Calcium Level 9.6 mg/dL (8.5-10.1) Total Bilirubin 0.4 mg/dL (0.2-1.0) Direct Bilirubin 0.1 mg/dL (0.0-0.2) Aspartate Amino Transf (AST/SGOT) 20 U/L (15-37) Alanine Aminotransferase (ALT/SGPT) 20 U/L (14-59) Alkaline Phosphatase 84 U/L (46-116) Troponin I Quantitative 0.019 ng/mL (0.000-0.055) 0.021 ng/mL (0.000-0.055) Total Protein 7.7 g/dL (6.4-8.2) Albumin 4.3 g/dL (3.4-5.0) Lipase 76 U/L (73-393) Laboratory Tests Test 01/26/19 17:35 01/26/19 22:20 Sodium Level 127 mmol/L (136-145) Potassium Level 4.3 mmol/L (3.5-5.1) Chloride Level 91 mmol/L (98-107) Carbon Dioxide Level 31 mmol/L (21-32) Anion Gap 5 (6-14) Blood Urea Nitrogen 9 mg/dL (7-20) Creatinine 0.8 mg/dL (0.6-1.0) Estimated GFR (Cockcroft-Gault) 74.2 Glucose Level 114 mg/dL (70-99) Calcium Level 9.6 mg/dL (8.5-10.1) Total Bilirubin 0.4 mg/dL (0.2-1.0) Direct Bilirubin 0.1 mg/dL (0.0-0.2) Aspartate Amino Transf (AST/SGOT) 20 U/L (15-37) Alanine Aminotransferase (ALT/SGPT) 20 U/L (14-59) Alkaline Phosphatase 84 U/L (46-116) Troponin I Quantitative 0.019 ng/mL (0.000-0.055) 0.021 ng/mL (0.000-0.055) Total Protein 7.7 g/dL (6.4-8.2) Albumin 4.3 g/dL (3.4-5.0) Lipase 76 U/L (73-393) VTE Prophylaxis Ordered VTE Prophylaxis Devices: No VTE Pharmacological Prophylaxi: Yes Assessment/Plan Assessment/Plan left sided chest pain, try lidoderm patch for reproducible component, she declines opiates if avail nitro given in ER and BP dropped angina, r/o ACS tobacco use disorder obese, bMI 30 JOEL SHOEMAKER MD Jan 26, 2019 22:54
[2019-01-26] MEDS ORDERED: LIDOCAINE (700MG/PATCH) PATCH. TD ONE (23:00)
[2019-01-26] MEDS ORDERED: NICOTINE POLACRILEX 2MG GUM PACKAGE of 12. BC PRN (23:00)
[2019-01-26 23:19] LABS: D-DIMER < 0.27 ug/mlFEU (0.00-0.50); PARTIAL THROMBOPLASTIN TIME 29 SEC (24-38); PROTHROMBIN TIME PATIENT 11.6 SEC (11.7-14.0)
[2019-01-26 23:22] LABS: BILIRUBIN,URINE NEGATIVE (NEG); CLARITY,URINE CLEAR; COLOR,URINE YELLOW
[2019-01-26 23:23] LABS: BACTERIA,URINE 0 /HPF (0-FEW); NITRITE,URINE NEGATIVE (NEG); PROTEIN,URINE NEGATIVE (NEG-TRACE); RBC,URINE 0 /HPF (0-2); SQUAMOUS EPITHELIAL CELL,UR FEW /LPF; UROBILINOGEN,URINE 0.2 mg/dL (0.2 mg/dL); WBC,URINE RARE /HPF (0-4)
[2019-01-26 23:27] LABS: BASO # 0.1 x10^3/uL (0.0-0.2); BASO % 0 % (0-3); EOS % 0 % (0-3); HEMATOCRIT 42.5 % (36.0-47.0); HEMOGLOBIN 14.4 g/dL (12.0-15.5); LYMPH # 3.3 x10^3/uL (1.0-4.8); LYMPH % 27 % (24-48); MEAN CORPUSCULAR HEMOGLOBIN 32 pg (25-35); MEAN CORPUSCULAR HGB CONC 34 g/dL (31-37); MEAN CORPUSCULAR VOLUME 95 fL (79-100); MONO # 0.7 x10^3/uL (0.0-1.1); MONO % 6 % (0-9); NEUT # 8.1 x10^3uL (1.8-7.7); NEUT % 67 % (31-73); PLATELET COUNT 328 x10^3/uL (140-400); RED BLOOD COUNT 4.48 x10^6/uL (3.50-5.40); RED CELL DISTRIBUTION WIDTH 13.2 % (11.5-14.5); WHITE BLOOD COUNT 12.2 x10^3/uL (4.0-11.0)
[2019-01-26] MEDS: ENOXAPARIN 40 MG/0.4 ML SYRINGE. SQ SCH (23:30)
[2019-01-26 23:55] VITALS: BP 123/68
[2019-01-27 02:11] LABS: BASO % 0 % (0-3); EOS # 0.1 x10^3/uL (0.0-0.7); EOS % 1 % (0-3); HEMATOCRIT 38.5 % (36.0-47.0); LYMPH # 4.6 x10^3/uL (1.0-4.8); LYMPH % 46 % (24-48); MEAN CORPUSCULAR HEMOGLOBIN 32 pg (25-35); MEAN CORPUSCULAR HGB CONC 34 g/dL (31-37); MEAN CORPUSCULAR VOLUME 96 fL (79-100); MONO # 0.7 x10^3/uL (0.0-1.1); MONO % 7 % (0-9); NEUT # 4.7 x10^3uL (1.8-7.7); NEUT % 46 % (31-73); PLATELET COUNT 286 x10^3/uL (140-400); RED BLOOD COUNT 4.01 x10^6/uL (3.50-5.40); RED CELL DISTRIBUTION WIDTH 13.2 % (11.5-14.5); WHITE BLOOD COUNT 10.1 x10^3/uL (4.0-11.0)
[2019-01-27 02:24] LABS: ALBUMIN 3.6 g/dL (3.4-5.0); ALBUMIN/GLOBULIN RATIO 1.3 (1.0-1.7); CALCIUM 8.8 mg/dL (8.5-10.1); CREATININE 0.7 mg/dL (0.6-1.0); GFR 86.6; POTASSIUM 3.5 mmol/L (3.5-5.1); TOTAL BILIRUBIN 0.5 mg/dL (0.2-1.0); TOTAL PROTEIN 6.4 g/dL (6.4-8.2)
[2019-01-27 02:28] LABS: CHOLESTEROL/HDL RATIO 3.4
[2019-01-27 03:54] VITALS: BP 113/75
[2019-01-27 07:00] VITALS: BP 110/63
--- NOTE | 2019-01-27 07:37 | EKG ---
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 Electronically Signed On 01-29-2019 9:46:14 CDT by Johnathon Eastman
[2019-01-27] MEDS ORDERED: buPROPion SR 150 MG TABLET.SA PO SCH ×2 (09:00→21:00)
[2019-01-27] MEDS: buPROPion SR 150 MG TABLET.SA PO SCH ×2 (09:00→11:42)
--- NOTE | 2019-01-27 09:45 | PDOC2 ---
CARDIAC CONSULT DATE OF CONSULT Date of Consult DATE: 01/27/19 TIME: 09:24 REASON FOR CONSULT Reason for Consult: Chest pain REFERRING PHYSICIAN Referring Physician: Jany SOURCE Source: Chart review, Patient HISTORY OF PRESENT ILLNESS HISTORY OF PRESENT ILLNESS This is a pleasant 58 yo female admitted for complains of chest pain and diarrhea. Reports that she has been having some pain around her breast implants and actually reproducible with palpation to her anterior chest and and breast circumscribe region. She is supposed to have MRI for her breast implant to see if there is any defect or leakage and she has been anxious about this in the last 3 days. She has been having this chest pain for the last 4 yrs blaming it on her breast implant and it is mostly tightness particularly when taking a deep breath. No KLEIN or exertional chest pain and able to do her ADLs without difficulty. Yesterday afternoon she had 6 diarrheal stools with last 2 being watery lasted for 2 hours. She felt exhausted after that and that is when her SOA increased and also had some chest tightness and nausea. Denies any jaw tightness or arm heaviness. No changes in her diet. She does feel tired midday most of the time and was told before that she was noted to have stops breathing at night and snores a lot. Never been told of KATHI. She smokes tobacco othe rwise no ETOH or recreational drugs. Denies any falls, injury, MVA, CAD, VTE. Denies any palpitations. No fever, chills or any recent antibiotic therapy. PAST MEDICAL HISTORY Cardiovascular: HTN CENTRAL NERVOUS SYSTEM: Other (No pertinent history) GI: No pertinent hx Heme/Onc: No pertinent hx Psych: Anxiety Musculoskeletal: Osteoarthritis Rheumatologic: No pertinent hx Infectious disease: No pertinent hx ENT: No pertinent hx Renal/: No pertinent hx Endocrine: No pertinent hx Dermatology: No pertinent hx PAST SURGICAL HISTORY Past Surgical History: Cholecystectomy (09/2018), Other (toe surgery; oral surgery;ovarian surgery; bilateral breast implants) FAMILY HISTORY Family History: Heart Disease (mother) SOCIAL HISTORY Smoke: <1 pack per day (on and off since she was 18 yo) ALCOHOL: none Drugs: None Lives: with Family CURRENT MEDICATIONS CURRENT MEDICATIONS Current Medications Medications (Trade) Dose Ordered Sig/Enoc Route PRN Reason Start Time Stop Time Status Last Admin Dose Admin Alprazolam (Xanax) 1 mg PRN Q6HRS PRN PO ANXIETY / AGITATION 01/26/19 22:00 01/26/19 22:37 Trazodone HCl (Desyrel) 150 mg QHS PO 01/26/19 23:00 01/26/19 22:32 Lidocaine (Lidoderm) 1 patch 1X ONCE TD 01/26/19 23:00 01/26/19 23:01 DC 01/26/19 22:59 Enoxaparin Sodium (Lovenox 40mg Syringe) 40 mg QHS SQ 01/26/19 23:00 01/26/19 23:30 ALLERGIES ALLERGIES: Coded Allergies: levofloxacin (Verified Adverse Reaction, Unknown, Joint pain., 10/22/18) ROS Review of System 14 point ROS evlauated with pertinent positives noted per HPI PHYSICAL EXAM General: Alert, Oriented X3, Cooperative, No acute distress HEENT: Atraumatic, Mucous membr. moist/pink Lungs: Clear to auscultation, Normal air movement Heart: Regular rate (SR), Normal S1, Normal S2, No murmurs Abdomen: Soft, Other (mild tenderness with palpation) Extremities: No cyanosis, No edema Skin: No breakdown, No significant lesion Neuro: Normal speech, Sensation intact Psych/Mental Status: Mental status NL, Other (anxious) MUSCULOSKELETAL: Osteoarthritic changes both hands VITALS VITALS Vital Signs Date Time Temp Pulse Resp B/P (MAP) Pulse Ox O2 Delivery O2 Flow Rate FiO2 01/27/19 08:00 Room Air 01/27/19 07:00 97.9 69 12 110/63 (79) 93 97.9 LABS Lab: Laboratory Tests Test 01/26/19 17:35 01/26/19 22:20 01/27/19 01:40 White Blood Count 12.2 x10^3/uL (4.0-11.0) 10.1 x10^3/uL (4.0-11.0) Red Blood Count 4.48 x10^6/uL (3.50-5.40) 4.01 x10^6/uL (3.50-5.40) Hemoglobin 14.4 g/dL (12.0-15.5) 13.0 g/dL (12.0-15.5) Hematocrit 42.5 % (36.0-47.0) 38.5 % (36.0-47.0) Mean Corpuscular Volume 95 fL (79-100) 96 fL (79-100) Mean Corpuscular Hemoglobin 32 pg (25-35) 32 pg (25-35) Mean Corpuscular Hemoglobin Concent 34 g/dL (31-37) 34 g/dL (31-37) Red Cell Distribution Width 13.2 % (11.5-14.5) 13.2 % (11.5-14.5) Platelet Count 328 x10^3/uL (140-400) 286 x10^3/uL (140-400) Neutrophils (%) (Auto) 67 % (31-73) 46 % (31-73) Lymphocytes (%) (Auto) 27 % (24-48) 46 % (24-48) Monocytes (%) (Auto) 6 % (0-9) 7 % (0-9) Eosinophils (%) (Auto) 0 % (0-3) 1 % (0-3) Basophils (%) (Auto) 0 % (0-3) 0 % (0-3) Neutrophils # (Auto) 8.1 x10^3uL (1.8-7.7) 4.7 x10^3uL (1.8-7.7) Lymphocytes # (Auto) 3.3 x10^3/uL (1.0-4.8) 4.6 x10^3/uL (1.0-4.8) Monocytes # (Auto) 0.7 x10^3/uL (0.0-1.1) 0.7 x10^3/uL (0.0-1.1) Eosinophils # (Auto) 0.0 x10^3/uL (0.0-0.7) 0.1 x10^3/uL (0.0-0.7) Basophils # (Auto) 0.1 x10^3/uL (0.0-0.2) 0.0 x10^3/uL (0.0-0.2) Prothrombin Time 11.6 SEC (11.7-14.0) Prothromb Time International Ratio 0.9 (0.8-1.1) Activated Partial Thromboplast Time 29 SEC (24-38) D-Dimer ([place]) < 0.27 ug/mlFEU Urine Collection Type Unknown Urine Color Yellow Urine Clarity Clear Urine pH 8.0 Urine Specific [place] <=1.005 Urine Protein Negative mg/dL (NEG-TRACE) Urine Glucose (UA) Negative mg/dL (NEG) Urine Ketones (Stick) Negative mg/dL (NEG) Urine Blood Trace (NEG) Urine Nitrite Negative (NEG) Urine Bilirubin Negative (NEG) Urine Urobilinogen Dipstick 0.2 mg/dL (0.2 mg/dL) Urine Leukocyte Esterase Trace (NEG) Urine RBC 0 /HPF (0-2) Urine WBC Rare /HPF (0-4) Urine Squamous Epithelial Cells Few /LPF Urine Bacteria 0 /HPF (0-FEW) Sodium Level 127 mmol/L (136-145) 132 mmol/L (136-145) Potassium Level 4.3 mmol/L (3.5-5.1) 3.5 mmol/L (3.5-5.1) Chloride Level 91 mmol/L (98-107) 94 mmol/L (98-107) Carbon Dioxide Level 31 mmol/L (21-32) 30 mmol/L (21-32) Anion Gap 5 (6-14) 8 (6-14) Blood Urea Nitrogen 9 mg/dL (7-20) 9 mg/dL (7-20) Creatinine 0.8 mg/dL (0.6-1.0) 0.7 mg/dL (0.6-1.0) Estimated GFR (Cockcroft-Gault) 74.2 86.6 Glucose Level 114 mg/dL (70-99) 105 mg/dL (70-99) Calcium Level 9.6 mg/dL (8.5-10.1) 8.8 mg/dL (8.5-10.1) Total Bilirubin 0.4 mg/dL (0.2-1.0) 0.5 mg/dL (0.2-1.0) Direct Bilirubin 0.1 mg/dL (0.0-0.2) Aspartate Amino Transf (AST/SGOT) 20 U/L (15-37) 15 U/L (15-37) Alanine Aminotransferase (ALT/SGPT) 20 U/L (14-59) 19 U/L (14-59) Alkaline Phosphatase 84 U/L (46-116) 68 U/L (46-116) Troponin I Quantitative 0.019 ng/mL (0.000-0.055) 0.021 ng/mL (0.000-0.055) 0.039 ng/mL (0.000-0.055) Total Protein 7.7 g/dL (6.4-8.2) 6.4 g/dL (6.4-8.2) Albumin 4.3 g/dL (3.4-5.0) 3.6 g/dL (3.4-5.0) Lipase 76 U/L (73-393) BUN/Creatinine Ratio 13 (6-20) Albumin/Globulin Ratio 1.3 (1.0-1.7) Triglycerides Level 73 mg/dL (0-150) Cholesterol Level 212 mg/dL (0-200) LDL Cholesterol, Calculated 134 mg/dL (0-100) VLDL Cholesterol, Calculated 15 mg/dL (0-40) Non-HDL Cholesterol Calculated 149 mg/dL (0-129) HDL Cholesterol 63 mg/dL (40-60) Cholesterol/HDL Ratio 3.4 Thyroid Stimulating Hormone (TSH) 0.877 uIU/mL (0.358-3.74) ASSESSMENT/PLAN ASSESSMENT/PLAN 1. Chest pain: mixed features. Doubt ACS. Suspect MSK and could be related to her breast implants. 2. Diarrhea/nausea: has an outpt GI referral with Dr. Devi for colon screening.. Potentially this could be anxiety induced. 3. Hx of bilateral breast implants: suppose to have an outpt MRI, defer to PCP 4. HTN: on HCTZ at home. Controlled 5. Anxiety: pt does take lamictal and wellbutrin 6. Tobaccoism 7. Fatigue: Possible KATHI contributing Recommendations 1. TSH, TTE, lipids. Will need outpt KATHI workup 2. Smoking cessation 3. If breast implant is not the issue and chest pain continues then will consider for outpt stress test. SHARLA CHENG APRN January 27, 2019 09:45
[2019-01-27 11:00] VITALS: BP 151/73
--- NOTE | 2019-01-27 11:15 | PDOC ---
PROGRESS NOTES Chief Complaint Chief Complaint Chest pain - mixed features. Appears to be ruled out ACS. Most likely combination of MSK and bronchitis, though also could be related to her breast implants. Diarrhea/nausea - has an outpt GI referral with Dr. Devi for colon screening Hx of bilateral breast implants - denied outpt MRI, does need this cared for, would recommend PCP to consult plastic surgery HTN - on HCTZ at home. 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 Reports that she has been having some pain around her breast implants and actually reproducible with palpation to her anterior chest and and breast circumscribe region. She was supposed to have MRI for her breast implant to see if there is any defect or leakage and she has been anxious about this in the last 3 days, but has not been approved. Pain is left sided, aching. No KLEIN or exertional chest pain and able to do her ADLs without difficulty. Yesterday afternoon she had 6 loose stools as well. She felt exhausted after that and that is when her SOA increased and also had some chest tightness and nausea. Denies any jaw tightness or arm heaviness. No changes in her diet. bedside states she stops breathing frequently in the middle of the night. She smokes tobacco otherwise no ETOH or recreational drugs. Denies any palpitations. No fever, chills or any recent antibiotic therapy. Had worsening respiratory distress this morning and dysuria, positive UA. This morning completed echo, seen by cardiology, was ruled out for ACS. She is asking for coffee, states she feels short of breath. Plan: Will review echo, start nebs, needs outpatient sleep study, stress testing, plastic surgery consultation outpatient Needs inhalers for bronchitis, will place on prednisone taper Needs UTI treatment Will see how she tolerates PO Vitals Vitals Vital Signs Date Time Temp Pulse Resp B/P (MAP) Pulse Ox O2 Delivery O2 Flow Rate FiO2 01/27/19 08:00 Room Air 01/27/19 07:00 97.9 69 12 110/63 (79) 93 97.9 Physical Exam General: Alert, Oriented X3, Cooperative, No acute distress Heart: Regular rate (SR), Normal S1, Normal S2, No murmurs Abdomen: Soft, Other (mild tenderness with palpation) Extremities: No cyanosis, No edema Skin: No breakdown, No significant lesion Labs LABS Laboratory Tests Test 01/26/19 17:35 01/26/19 22:20 01/27/19 01:40 White Blood Count 12.2 x10^3/uL (4.0-11.0) 10.1 x10^3/uL (4.0-11.0) Red Blood Count 4.48 x10^6/uL (3.50-5.40) 4.01 x10^6/uL (3.50-5.40) Hemoglobin 14.4 g/dL (12.0-15.5) 13.0 g/dL (12.0-15.5) Hematocrit 42.5 % (36.0-47.0) 38.5 % (36.0-47.0) Mean Corpuscular Volume 95 fL (79-100) 96 fL (79-100) Mean Corpuscular Hemoglobin 32 pg (25-35) 32 pg (25-35) Mean Corpuscular Hemoglobin Concent 34 g/dL (31-37) 34 g/dL (31-37) Red Cell Distribution Width 13.2 % (11.5-14.5) 13.2 % (11.5-14.5) Platelet Count 328 x10^3/uL (140-400) 286 x10^3/uL (140-400) Neutrophils (%) (Auto) 67 % (31-73) 46 % (31-73) Lymphocytes (%) (Auto) 27 % (24-48) 46 % (24-48) Monocytes (%) (Auto) 6 % (0-9) 7 % (0-9) Eosinophils (%) (Auto) 0 % (0-3) 1 % (0-3) Basophils (%) (Auto) 0 % (0-3) 0 % (0-3) Neutrophils # (Auto) 8.1 x10^3uL (1.8-7.7) 4.7 x10^3uL (1.8-7.7) Lymphocytes # (Auto) 3.3 x10^3/uL (1.0-4.8) 4.6 x10^3/uL (1.0-4.8) Monocytes # (Auto) 0.7 x10^3/uL (0.0-1.1) 0.7 x10^3/uL (0.0-1.1) Eosinophils # (Auto) 0.0 x10^3/uL (0.0-0.7) 0.1 x10^3/uL (0.0-0.7) Basophils # (Auto) 0.1 x10^3/uL (0.0-0.2) 0.0 x10^3/uL (0.0-0.2) Prothrombin Time 11.6 SEC (11.7-14.0) Prothromb Time International Ratio 0.9 (0.8-1.1) Activated Partial Thromboplast Time 29 SEC (24-38) D-Dimer ([place]) < 0.27 ug/mlFEU Urine Collection Type Unknown Urine Color Yellow Urine Clarity Clear Urine pH 8.0 Urine Specific [place] <=1.005 Urine Protein Negative mg/dL (NEG-TRACE) Urine Glucose (UA) Negative mg/dL (NEG) Urine Ketones (Stick) Negative mg/dL (NEG) Urine Blood Trace (NEG) Urine Nitrite Negative (NEG) Urine Bilirubin Negative (NEG) Urine Urobilinogen Dipstick 0.2 mg/dL (0.2 mg/dL) Urine Leukocyte Esterase Trace (NEG) Urine RBC 0 /HPF (0-2) Urine WBC Rare /HPF (0-4) Urine Squamous Epithelial Cells Few /LPF Urine Bacteria 0 /HPF (0-FEW) Sodium Level 127 mmol/L (136-145) 132 mmol/L (136-145) Potassium Level 4.3 mmol/L (3.5-5.1) 3.5 mmol/L (3.5-5.1) Chloride Level 91 mmol/L (98-107) 94 mmol/L (98-107) Carbon Dioxide Level 31 mmol/L (21-32) 30 mmol/L (21-32) Anion Gap 5 (6-14) 8 (6-14) Blood Urea Nitrogen 9 mg/dL (7-20) 9 mg/dL (7-20) Creatinine 0.8 mg/dL (0.6-1.0) 0.7 mg/dL (0.6-1.0) Estimated GFR (Cockcroft-Gault) 74.2 86.6 Glucose Level 114 mg/dL (70-99) 105 mg/dL (70-99) Calcium Level 9.6 mg/dL (8.5-10.1) 8.8 mg/dL (8.5-10.1) Total Bilirubin 0.4 mg/dL (0.2-1.0) 0.5 mg/dL (0.2-1.0) Direct Bilirubin 0.1 mg/dL (0.0-0.2) Aspartate Amino Transf (AST/SGOT) 20 U/L (15-37) 15 U/L (15-37) Alanine Aminotransferase (ALT/SGPT) 20 U/L (14-59) 19 U/L (14-59) Alkaline Phosphatase 84 U/L (46-116) 68 U/L (46-116) Troponin I Quantitative 0.019 ng/mL (0.000-0.055) 0.021 ng/mL (0.000-0.055) 0.039 ng/mL (0.000-0.055) Total Protein 7.7 g/dL (6.4-8.2) 6.4 g/dL (6.4-8.2) Albumin 4.3 g/dL (3.4-5.0) 3.6 g/dL (3.4-5.0) Lipase 76 U/L (73-393) BUN/Creatinine Ratio 13 (6-20) Albumin/Globulin Ratio 1.3 (1.0-1.7) Triglycerides Level 73 mg/dL (0-150) Cholesterol Level 212 mg/dL (0-200) LDL Cholesterol, Calculated 134 mg/dL (0-100) VLDL Cholesterol, Calculated 15 mg/dL (0-40) Non-HDL Cholesterol Calculated 149 mg/dL (0-129) HDL Cholesterol 63 mg/dL (40-60) Cholesterol/HDL Ratio 3.4 Thyroid Stimulating Hormone (TSH) 0.877 uIU/mL (0.358-3.74) Comment Review of Relevant I have reviewed the following items geraldo (where applicable) has been applied. Labs Laboratory Tests Test 01/26/19 17:35 01/26/19 22:20 01/27/19 01:40 White Blood Count 12.2 x10^3/uL (4.0-11.0) 10.1 x10^3/uL (4.0-11.0) Red Blood Count 4.48 x10^6/uL (3.50-5.40) 4.01 x10^6/uL (3.50-5.40) Hemoglobin 14.4 g/dL (12.0-15.5) 13.0 g/dL (12.0-15.5) Hematocrit 42.5 % (36.0-47.0) 38.5 % (36.0-47.0) Mean Corpuscular Volume 95 fL (79-100) 96 fL (79-100) Mean Corpuscular Hemoglobin 32 pg (25-35) 32 pg (25-35) Mean Corpuscular Hemoglobin Concent 34 g/dL (31-37) 34 g/dL (31-37) Red Cell Distribution Width 13.2 % (11.5-14.5) 13.2 % (11.5-14.5) Platelet Count 328 x10^3/uL (140-400) 286 x10^3/uL (140-400) Neutrophils (%) (Auto) 67 % (31-73) 46 % (31-73) Lymphocytes (%) (Auto) 27 % (24-48) 46 % (24-48) Monocytes (%) (Auto) 6 % (0-9) 7 % (0-9) Eosinophils (%) (Auto) 0 % (0-3) 1 % (0-3) Basophils (%) (Auto) 0 % (0-3) 0 % (0-3) Neutrophils # (Auto) 8.1 x10^3uL (1.8-7.7) 4.7 x10^3uL (1.8-7.7) Lymphocytes # (Auto) 3.3 x10^3/uL (1.0-4.8) 4.6 x10^3/uL (1.0-4.8) Monocytes # (Auto) 0.7 x10^3/uL (0.0-1.1) 0.7 x10^3/uL (0.0-1.1) Eosinophils # (Auto) 0.0 x10^3/uL (0.0-0.7) 0.1 x10^3/uL (0.0-0.7) Basophils # (Auto) 0.1 x10^3/uL (0.0-0.2) 0.0 x10^3/uL (0.0-0.2) Prothrombin Time 11.6 SEC (11.7-14.0) Prothromb Time International Ratio 0.9 (0.8-1.1) Activated Partial Thromboplast Time 29 SEC (24-38) D-Dimer ([place]) < 0.27 ug/mlFEU Urine Collection Type Unknown Urine Color Yellow Urine Clarity Clear Urine pH 8.0 Urine Specific [place] <=1.005 Urine Protein Negative mg/dL (NEG-TRACE) Urine Glucose (UA) Negative mg/dL (NEG) Urine Ketones (Stick) Negative mg/dL (NEG) Urine Blood Trace (NEG) Urine Nitrite Negative (NEG) Urine Bilirubin Negative (NEG) Urine Urobilinogen Dipstick 0.2 mg/dL (0.2 mg/dL) Urine Leukocyte Esterase Trace (NEG) Urine RBC 0 /HPF (0-2) Urine WBC Rare /HPF (0-4) Urine Squamous Epithelial Cells Few /LPF Urine Bacteria 0 /HPF (0-FEW) Sodium Level 127 mmol/L (136-145) 132 mmol/L (136-145) Potassium Level 4.3 mmol/L (3.5-5.1) 3.5 mmol/L (3.5-5.1) Chloride Level 91 mmol/L (98-107) 94 mmol/L (98-107) Carbon Dioxide Level 31 mmol/L (21-32) 30 mmol/L (21-32) Anion Gap 5 (6-14) 8 (6-14) Blood Urea Nitrogen 9 mg/dL (7-20) 9 mg/dL (7-20) Creatinine 0.8 mg/dL (0.6-1.0) 0.7 mg/dL (0.6-1.0) Estimated GFR (Cockcroft-Gault) 74.2 86.6 Glucose Level 114 mg/dL (70-99) 105 mg/dL (70-99) Calcium Level 9.6 mg/dL (8.5-10.1) 8.8 mg/dL (8.5-10.1) Total Bilirubin 0.4 mg/dL (0.2-1.0) 0.5 mg/dL (0.2-1.0) Direct Bilirubin 0.1 mg/dL (0.0-0.2) Aspartate Amino Transf (AST/SGOT) 20 U/L (15-37) 15 U/L (15-37) Alanine Aminotransferase (ALT/SGPT) 20 U/L (14-59) 19 U/L (14-59) Alkaline Phosphatase 84 U/L (46-116) 68 U/L (46-116) Troponin I Quantitative 0.019 ng/mL (0.000-0.055) 0.021 ng/mL (0.000-0.055) 0.039 ng/mL (0.000-0.055) Total Protein 7.7 g/dL (6.4-8.2) 6.4 g/dL (6.4-8.2) Albumin 4.3 g/dL (3.4-5.0) 3.6 g/dL (3.4-5.0) Lipase 76 U/L (73-393) BUN/Creatinine Ratio 13 (6-20) Albumin/Globulin Ratio 1.3 (1.0-1.7) Triglycerides Level 73 mg/dL (0-150) Cholesterol Level 212 mg/dL (0-200) LDL Cholesterol, Calculated 134 mg/dL (0-100) VLDL Cholesterol, Calculated 15 mg/dL (0-40) Non-HDL Cholesterol Calculated 149 mg/dL (0-129) HDL Cholesterol 63 mg/dL (40-60) Cholesterol/HDL Ratio 3.4 Thyroid Stimulating Hormone (TSH) 0.877 uIU/mL (0.358-3.74) Laboratory Tests Test 01/26/19 17:35 01/26/19 22:20 01/27/19 01:40 White Blood Count 12.2 x10^3/uL (4.0-11.0) 10.1 x10^3/uL (4.0-11.0) Red Blood Count 4.48 x10^6/uL (3.50-5.40) 4.01 x10^6/uL (3.50-5.40) Hemoglobin 14.4 g/dL (12.0-15.5) 13.0 g/dL (12.0-15.5) Hematocrit 42.5 % (36.0-47.0) 38.5 % (36.0-47.0) Mean Corpuscular Volume 95 fL (79-100) 96 fL (79-100) Mean Corpuscular Hemoglobin 32 pg (25-35) 32 pg (25-35) Mean Corpuscular Hemoglobin Concent 34 g/dL (31-37) 34 g/dL (31-37) Red Cell Distribution Width 13.2 % (11.5-14.5) 13.2 % (11.5-14.5) Platelet Count 328 x10^3/uL (140-400) 286 x10^3/uL (140-400) Neutrophils (%) (Auto) 67 % (31-73) 46 % (31-73) Lymphocytes (%) (Auto) 27 % (24-48) 46 % (24-48) Monocytes (%) (Auto) 6 % (0-9) 7 % (0-9) Eosinophils (%) (Auto) 0 % (0-3) 1 % (0-3) Basophils (%) (Auto) 0 % (0-3) 0 % (0-3) Neutrophils # (Auto) 8.1 x10^3uL (1.8-7.7) 4.7 x10^3uL (1.8-7.7) Lymphocytes # (Auto) 3.3 x10^3/uL (1.0-4.8) 4.6 x10^3/uL (1.0-4.8) Monocytes # (Auto) 0.7 x10^3/uL (0.0-1.1) 0.7 x10^3/uL (0.0-1.1) Eosinophils # (Auto) 0.0 x10^3/uL (0.0-0.7) 0.1 x10^3/uL (0.0-0.7) Basophils # (Auto) 0.1 x10^3/uL (0.0-0.2) 0.0 x10^3/uL (0.0-0.2) Prothrombin Time 11.6 SEC (11.7-14.0) Prothromb Time International Ratio 0.9 (0.8-1.1) Activated Partial Thromboplast Time 29 SEC (24-38) D-Dimer ([place]) < 0.27 ug/mlFEU Urine Collection Type Unknown Urine Color Yellow Urine Clarity Clear Urine pH 8.0 Urine Specific [place] <=1.005 Urine Protein Negative mg/dL (NEG-TRACE) Urine Glucose (UA) Negative mg/dL (NEG) Urine Ketones (Stick) Negative mg/dL (NEG) Urine Blood Trace (NEG) Urine Nitrite Negative (NEG) Urine Bilirubin Negative (NEG) Urine Urobilinogen Dipstick 0.2 mg/dL (0.2 mg/dL) Urine Leukocyte Esterase Trace (NEG) Urine RBC 0 /HPF (0-2) Urine WBC Rare /HPF (0-4) Urine Squamous Epithelial Cells Few /LPF Urine Bacteria 0 /HPF (0-FEW) Sodium Level 127 mmol/L (136-145) 132 mmol/L (136-145) Potassium Level 4.3 mmol/L (3.5-5.1) 3.5 mmol/L (3.5-5.1) Chloride Level 91 mmol/L (98-107) 94 mmol/L (98-107) Carbon Dioxide Level 31 mmol/L (21-32) 30 mmol/L (21-32) Anion Gap 5 (6-14) 8 (6-14) Blood Urea Nitrogen 9 mg/dL (7-20) 9 mg/dL (7-20) Creatinine 0.8 mg/dL (0.6-1.0) 0.7 mg/dL (0.6-1.0) Estimated GFR (Cockcroft-Gault) 74.2 86.6 Glucose Level 114 mg/dL (70-99) 105 mg/dL (70-99) Calcium Level 9.6 mg/dL (8.5-10.1) 8.8 mg/dL (8.5-10.1) Total Bilirubin 0.4 mg/dL (0.2-1.0) 0.5 mg/dL (0.2-1.0) Direct Bilirubin 0.1 mg/dL (0.0-0.2) Aspartate Amino Transf (AST/SGOT) 20 U/L (15-37) 15 U/L (15-37) Alanine Aminotransferase (ALT/SGPT) 20 U/L (14-59) 19 U/L (14-59) Alkaline Phosphatase 84 U/L (46-116) 68 U/L (46-116) Troponin I Quantitative 0.019 ng/mL (0.000-0.055) 0.021 ng/mL (0.000-0.055) 0.039 ng/mL (0.000-0.055) Total Protein 7.7 g/dL (6.4-8.2) 6.4 g/dL (6.4-8.2) Albumin 4.3 g/dL (3.4-5.0) 3.6 g/dL (3.4-5.0) Lipase 76 U/L (73-393) BUN/Creatinine Ratio 13 (6-20) Albumin/Globulin Ratio 1.3 (1.0-1.7) Triglycerides Level 73 mg/dL (0-150) Cholesterol Level 212 mg/dL (0-200) LDL Cholesterol, Calculated 134 mg/dL (0-100) VLDL Cholesterol, Calculated 15 mg/dL (0-40) Non-HDL Cholesterol Calculated 149 mg/dL (0-129) HDL Cholesterol 63 mg/dL (40-60) Cholesterol/HDL Ratio 3.4 Thyroid Stimulating Hormone (TSH) 0.877 uIU/mL (0.358-3.74) Medications Current Medications Fentanyl Citrate (Fentanyl 2ml Vial) 50 mcg PRN Q1HR PRN IV PAIN; Start 01/26/19 at 19:30; Stop 01/27/19 at 19:29 Alprazolam (Xanax) 1 mg PRN Q6HRS PRN PO ANXIETY / AGITATION Last administered on 01/26/19at 22:37; Start 01/26/19 at 22:00 Hydrochlorothiazide (Hydrodiuril) 25 mg DAILY PO ; Start 01/27/19 at 09:00 Oxycodone/ Acetaminophen (Percocet 5/325) 1 tab PRN Q6HRS PRN PO SEVERE PAIN; Start 01/26/19 at 22:00; Stop 01/26/19 at 22:43; Status DC Lamotrigine (LaMICtal) 100 mg DAILY PO ; Start 01/27/19 at 09:00 Meloxicam (Mobic) 15 mg DAILY PO ; Start 01/27/19 at 09:00 Trazodone HCl (Desyrel) 150 mg QHS PO Last administered on 01/26/19at 22:32; Start 01/26/19 at 23:00 Bupropion HCl (Wellbutrin Sr) 150 mg BID PO ; Start 01/26/19 at 23:00; Stop 01/27/19 at 09:00; Status DC Oxycodone HCl (Roxicodone) 10 mg PRN Q6HRS PRN PO SEVERE PAIN; Start 01/26/19 at 22:15; Stop 01/26/19 at 22:43; Status DC Bupropion HCl (Wellbutrin Sr) 150 mg DAILY PO ; Start 01/27/19 at 09:00 Lidocaine (Lidoderm) 1 patch 1X ONCE TD Last administered on 01/26/19at 22:59; Start 01/26/19 at 23:00; Stop 01/26/19 at 23:01; Status DC Nicotine (Nicoderm Cq 14mg) 1 patch PRN DAILY PRN TD SMOKING CESSATION; Start 01/26/19 at 22:30 Nicotine Polacrilex (Nicorette Gum) 1 each PRN Q1HR PRN BC CIGARETTE CRAVINGS; Start 01/26/19 at 23:00 Enoxaparin Sodium (Lovenox Per Pharmacy Prophylaxis Dosing) 1 each PRN DAILY PRN MC SEE COMMENTS; Start 01/26/19 at 23:00 Aspirin (Sam Aspirin) 325 mg DAILYWBKFT PO ; Start 01/27/19 at 08:00 Enoxaparin Sodium (Lovenox 40mg Syringe) 40 mg QHS SQ Last administered on 01/26/19at 23:30; Start 01/26/19 at 23:00 Active Scripts Active Reported Percocet 5-325 Mg Tablet (Oxycodone/Acetaminophen) 1 Each Tablet 1-2 Tab PO PRN Q6HRS PRN LAST DOSE GIVEN: Fish Oil 1,200 Mg Fish Oil (Fish Oil/Dha/Epa) 1 Each Capsule 1 Each PO Garlic 1,000 Mg Capsule 1,000 Mg PO Hydrochlorothiazide Tablet (Hydrochlorothiazide) 25 Mg Tablet 25 Mg PO DAILY Bupropion Xl (Bupropion Hcl) 300 Mg Tab.er.24h 300 Mg PO Lamotrigine 100 Mg Tablet 100 Mg PO DAILY Alprazolam 1 Mg Tablet 1 Mg PO PRN Q6HRS PRN Meloxicam 15 Mg Tablet 15 Mg PO DAILY Trazodone Hcl 150 Mg Tablet 150 Mg PO HS Vitals/I & O Vital Sign - Last 24 Hours 01/26/19 01/26/19 01/26/19 01/27/19 21:07 22:10 23:55 03:54 Temp 97.6 97.6 97.9 97.6 97.6 97.9 Pulse 78 64 64 Resp 18 16 16 B/P (MAP) 141/84 (103) 123/68 (86) 113/75 (88) Pulse Ox 97 95 96 O2 Delivery Room Air Room Air Room Air Room Air 01/27/19 01/27/19 07:00 08:00 Temp 97.9 97.9 Pulse 69 Resp 12 B/P (MAP) 110/63 (79) Pulse Ox 93 O2 Delivery Room Air Room Air Intake and Output0 01/26/19 01/26/19 01/27/19 14:59 22:59 06:59 Intake Total 240 ml 0 ml Balance 240 ml 0 ml Images CXR - 1. No consolidating infiltrate. 2. Small dense nodule right midlung. This may represent a granuloma, if any prior outside chest x-rays are available that would be helpful for comparison. JOHNNY MARVIN MD January 27, 2019 11:15
--- NOTE | 2019-01-27 11:30 | NUR ---
SS following for discharge planning. SS reviewed pt chart. Pt is from home and is currently on room air. No discharge needs noted at this time. SS will continue to follow for pending discharge needs.
[2019-01-27 11:40] LABS: BILIRUBIN,URINE NEGATIVE (NEG); CLARITY,URINE CLEAR; COLOR,URINE YELLOW; NITRITE,URINE POSITIVE (NEG); PH,URINE 7.5; PROTEIN,URINE NEGATIVE (NEG-TRACE); UROBILINOGEN,URINE 0.2 mg/dL (0.2 mg/dL)
[2019-01-27] MEDS: hydroCHLOROthiazide 25 MG TABLET PO SCH (11:41)
[2019-01-27] MEDS: ASPIRIN 325 MG TABLET PO SCH (11:41)
[2019-01-27] MEDS: MELOXICAM 7.5 MG TABLET PO SCH (11:41)
[2019-01-27] MEDS: lamoTRIgine 100 MG TABLET. PO SCH (11:41)
[2019-01-27 11:50] LABS: BACTERIA,URINE MANY /HPF (0-FEW)
--- NOTE | 2019-01-27 12:36 | CARD ---
MR#: [id number] Date of Study: 01/27/2019 Ordering Physician: SHARLA CHENG, Referring Physician: JOEL SHOEMAKER, Tech: Janeth Gonzalez APPROVED REPORT EXAM: Two-dimensional and M-mode echocardiogram with Doppler and color Doppler. Other Information Quality : AverageHR: 70bpm Technically limited study due to Breast surgery INDICATION Chest pressure RISK FACTORS Hyperlipidemia Smoking 2D DIMENSIONS Left Atrium(2D)2.7 (1.6-4.0cm)IVSd1.0 (0.7-1.1cm) Aortic Root(2D)2.9 (2.0-3.7cm)LVDd4.7 (3.9-5.9cm) LVOT Diameter2.1 (1.8-2.4cm)PWd1.0 (0.7-1.1cm) LVDs3.4 (2.5-4.0cm)FS (%) 29.0 % SV58.0 ml Aortic Valve AoV Peak Gokul.139.3cm/sAoV VTI25.6cm AO Peak GR.7.8mmHgLVOT Peak Gokul.102.5cm/s LVOT VTI 19.66cmAO Mean GR.5mmHg MANUELA (VMAX)1.07hx8NWP (VTI)2.58cm2 Mitral Valve MV E Hjeabofa15.6cm/sMV E Peak Gr.117mmHg MV DECEL [id number] A Ugrttlpl07.6cm/s MV [id number]/A Ratio0.9 MVA (PHT)2.71cm2 TDI E/Lateral E'6.4E/Medial E'7.9 Pulmonary Valve PV Peak Pfltyraf22.3cm/sPV Peak Grad.4mmHg Tricuspid Valve TR P. [id number]/sRAP [id number] TR Peak Gr.[id number] Pulmonary Vein S1 Owzaxrto81.1cm/sD2 Lauiednb77.7cm/s PVa [id number] LEFT VENTRICLE The left ventricle is normal size. There is normal left ventricular wall thickness. The left ventricu lar systolic function is normal and the ejection fraction is within normal range. The Ejection Fracti on is 50-55%. There is normal LV segmental wall motion. Transmitral Doppler flow pattern is Grade I-a bnormal relaxation pattern. RIGHT VENTRICLE The right ventricle is borderline dilated. There is normal right ventricular wall thickness. The righ t ventricular systolic function is normal. ATRIA The left atrium size is normal. The right atrium size is normal. The interatrial septum is intact wit h no evidence for an atrial septal defect or patent foramen ovale as noted on 2-D or Doppler imaging. AORTIC VALVE The aortic valve is not well visualized. Doppler and Color Flow revealed no significant aortic regurg itation. There is no significant aortic valvular stenosis. MITRAL VALVE The mitral valve is normal in structure and function. There is no evidence of mitral valve prolapse. There is no mitral valve stenosis. Doppler and Color-flow revealed trace mitral regurgitation. TRICUSPID VALVE The tricuspid valve is normal in structure and function. Doppler and Color Flow revealed trace tricus pid valve regurgitation noted with an estimated PAP of 30 mmHg. There is no tricuspid valve stenosis. PULMONIC VALVE The pulmonic valve is not well visualized. Doppler and Color Flow revealed no pulmonic valvular regur gitation. GREAT VESSELS The aortic root is normal in size. The IVC is normal in size and collapses >50% with inspiration. PERICARDIAL EFFUSION There is no evidence of significant pericardial effusion. Critical Notification Critical Value: No <Conclusion> The left ventricle is normal size. The left ventricular systolic function is normal and the ejection fraction is within normal range. The Ejection Fraction is 50-55%. There is no significant aortic valvular stenosis. Doppler and Color Flow revealed no significant aortic regurgitation. Doppler and Color-flow revealed trace mitral regurgitation. Doppler and Color Flow revealed trace tricuspid valve regurgitation noted with an estimated PAP of 30 mmHg. Signed by : Johnathon Eastman MD Electronically Approved : 01/27/2019 12:35:07
[2019-01-27] MEDS ORDERED: cefTRIAXone IV Push 1 GM VIAL. IVP SCH (13:00)
[2019-01-27] MEDS ORDERED: FLUT12AE IH (13:26)
[2019-01-27] MEDS ORDERED: MONT10TA9 PO (13:26)
[2019-01-27] MEDS ORDERED: IPRA4AER IH (13:26)
[2019-01-27] MEDS: IPRATRPIUM/ALBUTEROL 0.5/2.5MG 3 ML NEBU. NEB SCH ×3 (13:40→19:33)
[2019-01-27 15:00] VITALS: BP 137/71
[2019-01-27] MEDS ORDERED: methylPREDNISolone SOD SUCC PF 125 MG/2 ML VIAL. IV ONE (16:00)
[2019-01-27] MEDS ORDERED: BISMUTH SUBSALICYLATE 262 MG/15 ML ORAL.SUSP 236ML BOTTLE. PO PRN ×2 (18:00→18:15)
[2019-01-27 19:07] VITALS: BP 134/84
[2019-01-27] MEDS: BUDESONIDE 0.5 MG/2 ML NEBU. NEB SCH (19:33)
[2019-01-27] MEDS ORDERED: MONTELUKAST SODIUM 10 MG TABLET. PO SCH (21:00)
[2019-01-27] MEDS: ENOXAPARIN 40 MG/0.4 ML SYRINGE. SQ SCH (21:00)
[2019-01-27] MEDS: traZODone 50 MG TABLET. PO SCH (21:06)
[2019-01-27] MEDS: ALPRAZolam 1 MG TABLET PO PRN (21:07)
[2019-01-27 22:41] VITALS: BP 103/62
[2019-01-28 03:14] VITALS: BP 108/69
[2019-01-28] MEDS: BUDESONIDE 0.5 MG/2 ML NEBU. NEB SCH (06:14)
[2019-01-28] MEDS: IPRATRPIUM/ALBUTEROL 0.5/2.5MG 3 ML NEBU. NEB SCH (06:14)
[2019-01-28 07:00] VITALS: BP 125/74
[2019-01-28] MEDS: ASPIRIN 325 MG TABLET PO SCH (08:31)
[2019-01-28] MEDS: hydroCHLOROthiazide 25 MG TABLET PO SCH (08:31)
[2019-01-28] MEDS: lamoTRIgine 100 MG TABLET. PO SCH (08:31)
[2019-01-28] MEDS: MELOXICAM 7.5 MG TABLET PO SCH (08:32)
[2019-01-28] MEDS: buPROPion SR 150 MG TABLET.SA PO SCH (08:32)
[2019-01-28] MEDS ORDERED: LACTOBACILLUS RHAMNOSUS GG 1 CAPSULE. PO SCH (09:00)
[2019-01-28] MEDS ORDERED: predniSONE 20 MG TABLET PO SCH (09:00)
[2019-01-28 11:00] VITALS: BP 149/73
--- NOTE | 2019-01-28 11:12 | PDOC ---
PROGRESS NOTES Chief Complaint Chief Complaint Chest pain - mixed features. Appears to be ruled out ACS. Most likely combination of MSK and bronchitis, though also could be related to her breast implants. Diarrhea/nausea - has an outpt GI referral with Dr. Devi for colon screening Hx of bilateral breast implants - denied outpt MRI, does need this cared for, would recommend PCP to consult plastic surgery HTN - on HCTZ at home. 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 Reports that she has been having some pain around her breast implants and actually reproducible with palpation to her anterior chest and and breast circumscribe region. She was supposed to have MRI for her breast implant to see if there is any defect or leakage and she has been anxious about this in the last 3 days, but has not been approved. Pain is left sided, aching. No KLEIN or exertional chest pain and able to do her ADLs without difficulty. Yesterday afternoon she had 6 loose stools as well. She felt exhausted after that and that is when her SOA increased and also had some chest tightness and nausea. Denies any jaw tightness or arm heaviness. No changes in her diet. bedside states she stops breathing frequently in the middle of the night. She smokes tobacco otherwise no ETOH or recreational drugs. Denies any palpitations. No fever, chills or any recent antibiotic therapy. 5/: Had worsening respiratory distress this morning and dysuria, positive UA. Completed echo, seen by cardiology, was ruled out for ACS. She is asking for coffee, states she feels much less short of breath after duonebs. Plan: Will review echo, start nebs, needs outpatient sleep study, stress testing, plastic surgery consultation outpatient Needs inhalers for bronchitis, will place on prednisone taper Needs UTI treatment Will see how she tolerates PO Vitals Vitals Vital Signs Date Time Temp Pulse Resp B/P (MAP) Pulse Ox O2 Delivery O2 Flow Rate FiO2 01/28/19 07:00 98.0 84 16 125/74 (91) 90 Room Air 98.0 Physical Exam General: Alert, Oriented X3, Cooperative, No acute distress Heart: Regular rate (SR), Normal S1, Normal S2, No murmurs Abdomen: Soft, Other (mild tenderness with palpation) Extremities: No cyanosis, No edema Skin: No breakdown, No significant lesion Comment Review of Relevant I have reviewed the following items geraldo (where applicable) has been applied. Labs Laboratory Tests Test 01/26/19 17:35 01/26/19 22:20 01/27/19 01:40 01/27/19 10:22 White Blood Count 12.2 x10^3/uL (4.0-11.0) 10.1 x10^3/uL (4.0-11.0) Red Blood Count 4.48 x10^6/uL (3.50-5.40) 4.01 x10^6/uL (3.50-5.40) Hemoglobin 14.4 g/dL (12.0-15.5) 13.0 g/dL (12.0-15.5) Hematocrit 42.5 % (36.0-47.0) 38.5 % (36.0-47.0) Mean Corpuscular Volume 95 fL (79-100) 96 fL (79-100) Mean Corpuscular Hemoglobin 32 pg (25-35) 32 pg (25-35) Mean Corpuscular Hemoglobin Concent 34 g/dL (31-37) 34 g/dL (31-37) Red Cell Distribution Width 13.2 % (11.5-14.5) 13.2 % (11.5-14.5) Platelet Count 328 x10^3/uL (140-400) 286 x10^3/uL (140-400) Neutrophils (%) (Auto) 67 % (31-73) 46 % (31-73) Lymphocytes (%) (Auto) 27 % (24-48) 46 % (24-48) Monocytes (%) (Auto) 6 % (0-9) 7 % (0-9) Eosinophils (%) (Auto) 0 % (0-3) 1 % (0-3) Basophils (%) (Auto) 0 % (0-3) 0 % (0-3) Neutrophils # (Auto) 8.1 x10^3uL (1.8-7.7) 4.7 x10^3uL (1.8-7.7) Lymphocytes # (Auto) 3.3 x10^3/uL (1.0-4.8) 4.6 x10^3/uL (1.0-4.8) Monocytes # (Auto) 0.7 x10^3/uL (0.0-1.1) 0.7 x10^3/uL (0.0-1.1) Eosinophils # (Auto) 0.0 x10^3/uL (0.0-0.7) 0.1 x10^3/uL (0.0-0.7) Basophils # (Auto) 0.1 x10^3/uL (0.0-0.2) 0.0 x10^3/uL (0.0-0.2) Prothrombin Time 11.6 SEC (11.7-14.0) Prothromb Time International Ratio 0.9 (0.8-1.1) Activated Partial Thromboplast Time 29 SEC (24-38) D-Dimer (Belem) < 0.27 ug/mlFEU Urine Collection Type Unknown Unknown Urine Color Yellow Yellow Urine Clarity Clear Clear Urine pH 8.0 7.5 Urine Specific [place] <=1.005 1.015 Urine Protein Negative mg/dL (NEG-TRACE) Negative mg/dL (NEG-TRACE) Urine Glucose (UA) Negative mg/dL (NEG) Negative mg/dL (NEG) Urine Ketones (Stick) Negative mg/dL (NEG) Negative mg/dL (NEG) Urine Blood Trace (NEG) Small (NEG) Urine Nitrite Negative (NEG) Positive (NEG) Urine Bilirubin Negative (NEG) Negative (NEG) Urine Urobilinogen Dipstick 0.2 mg/dL (0.2 mg/dL) 0.2 mg/dL (0.2 mg/dL) Urine Leukocyte Esterase Trace (NEG) Small (NEG) Urine RBC 0 /HPF (0-2) 1-2 /HPF (0-2) Urine WBC Rare /HPF (0-4) 5-10 /HPF (0-4) Urine Squamous Epithelial Cells Few /LPF Urine Bacteria 0 /HPF (0-FEW) Many /HPF (0-FEW) Sodium Level 127 mmol/L (136-145) 132 mmol/L (136-145) Potassium Level 4.3 mmol/L (3.5-5.1) 3.5 mmol/L (3.5-5.1) Chloride Level 91 mmol/L (98-107) 94 mmol/L (98-107) Carbon Dioxide Level 31 mmol/L (21-32) 30 mmol/L (21-32) Anion Gap 5 (6-14) 8 (6-14) Blood Urea Nitrogen 9 mg/dL (7-20) 9 mg/dL (7-20) Creatinine 0.8 mg/dL (0.6-1.0) 0.7 mg/dL (0.6-1.0) Estimated GFR (Cockcroft-Gault) 74.2 86.6 Glucose Level 114 mg/dL (70-99) 105 mg/dL (70-99) Calcium Level 9.6 mg/dL (8.5-10.1) 8.8 mg/dL (8.5-10.1) Total Bilirubin 0.4 mg/dL (0.2-1.0) 0.5 mg/dL (0.2-1.0) Direct Bilirubin 0.1 mg/dL (0.0-0.2) Aspartate Amino Transf (AST/SGOT) 20 U/L (15-37) 15 U/L (15-37) Alanine Aminotransferase (ALT/SGPT) 20 U/L (14-59) 19 U/L (14-59) Alkaline Phosphatase 84 U/L (46-116) 68 U/L (46-116) Troponin I Quantitative 0.019 ng/mL (0.000-0.055) 0.021 ng/mL (0.000-0.055) 0.039 ng/mL (0.000-0.055) Total Protein 7.7 g/dL (6.4-8.2) 6.4 g/dL (6.4-8.2) Albumin 4.3 g/dL (3.4-5.0) 3.6 g/dL (3.4-5.0) Lipase 76 U/L (73-393) BUN/Creatinine Ratio 13 (6-20) Albumin/Globulin Ratio 1.3 (1.0-1.7) Triglycerides Level 73 mg/dL (0-150) Cholesterol Level 212 mg/dL (0-200) LDL Cholesterol, Calculated 134 mg/dL (0-100) VLDL Cholesterol, Calculated 15 mg/dL (0-40) Non-HDL Cholesterol Calculated 149 mg/dL (0-129) HDL Cholesterol 63 mg/dL (40-60) Cholesterol/HDL Ratio 3.4 Thyroid Stimulating Hormone (TSH) 0.877 uIU/mL (0.358-3.74) Medications Current Medications Fentanyl Citrate (Fentanyl 2ml Vial) 50 mcg PRN Q1HR PRN IV PAIN; Start 01/26/19 at 19:30; Stop 01/27/19 at 19:29; Status DC Alprazolam (Xanax) 1 mg PRN Q6HRS PRN PO ANXIETY / AGITATION Last administered on 01/27/19at 21:07; Start 01/26/19 at 22:00 Hydrochlorothiazide (Hydrodiuril) 25 mg DAILY PO Last administered on 01/28/19at 08:31; Start 01/27/19 at 09:00 Oxycodone/ Acetaminophen (Percocet 5/325) 1 tab PRN Q6HRS PRN PO SEVERE PAIN; Start 01/26/19 at 22:00; Stop 01/26/19 at 22:43; Status DC Lamotrigine (LaMICtal) 100 mg DAILY PO Last administered on 01/28/19at 08:31; Start 01/27/19 at 09:00 Meloxicam (Mobic) 15 mg DAILY PO Last administered on 01/28/19at 08:32; Start 01/27/19 at 09:00 Trazodone HCl (Desyrel) 150 mg QHS PO Last administered on 01/27/19at 21:06; Start 01/26/19 at 23:00 Bupropion HCl (Wellbutrin Sr) 150 mg BID PO ; Start 01/26/19 at 23:00; Stop 01/27/19 at 09:00; Status DC Oxycodone HCl (Roxicodone) 10 mg PRN Q6HRS PRN PO SEVERE PAIN; Start 01/26/19 at 22:15; Stop 01/26/19 at 22:43; Status DC Bupropion HCl (Wellbutrin Sr) 150 mg DAILY PO ; Start 01/27/19 at 09:00; Status Cancel Lidocaine (Lidoderm) 1 patch 1X ONCE TD Last administered on 01/26/19at 22:59; Start 01/26/19 at 23:00; Stop 01/26/19 at 23:01; Status DC Nicotine (Nicoderm Cq 14mg) 1 patch PRN DAILY PRN TD SMOKING CESSATION; Start 01/26/19 at 22:30 Nicotine Polacrilex (Nicorette Gum) 1 each PRN Q1HR PRN BC CIGARETTE CRAVINGS; Start 01/26/19 at 23:00 Enoxaparin Sodium (Lovenox Per Pharmacy Prophylaxis Dosing) 1 each PRN DAILY PRN MC SEE COMMENTS; Start 01/26/19 at 23:00 Aspirin (Sam Aspirin) 325 mg DAILYWBKFT PO Last administered on 01/28/19at 08:31; Start 01/27/19 at 08:00 Enoxaparin Sodium (Lovenox 40mg Syringe) 40 mg QHS SQ Last administered on 01/26/19at 23:30; Start 01/26/19 at 23:00 Albuterol/ Ipratropium (Duoneb) 3 ml RTQID NEB Last administered on 01/28/19at 06:14; Start 01/27/19 at 12:00 Bupropion HCl (Wellbutrin Sr) 150 mg HS PO ; Start 01/27/19 at 21:00; Status Cancel Bupropion HCl (Wellbutrin Sr) 300 mg DAILY PO Last administered on 01/28/19at 08:32; Start 01/27/19 at 12:00 Montelukast Sodium (Singulair) 10 mg QHS PO Last administered on 01/27/19at 21:06; Start 01/27/19 at 21:00 Ceftriaxone Sodium (Rocephin) 1 gm Q24H IVP Last administered on 01/27/19at 13:23; Start 01/27/19 at 13:00 Methylprednisolone Sodium Succinate (SOLU-Medrol 125MG VIAL) 125 mg 1X ONCE IV Last administered on 01/27/19at 17:02; Start 01/27/19 at 16:00; Stop 01/27/19 at 16:01; Status DC Prednisone (Prednisone) 20 mg DAILY PO Last administered on 01/28/19at 08:32; Start 01/28/19 at 09:00 Budesonide (Pulmicort) 0.5 mg RTBID NEB Last administered on 01/28/19at 06:14; Start 01/27/19 at 20:00 Bismuth Subsalicylate (Pepto-Bismol) 1 mg PRN Q4HRS PRN PO DIARRHEA; Start 01/27/19 at 18:00; Status UNV Bismuth Subsalicylate (Pepto-Bismol) 262 mg PRN Q4HRS PRN PO DIARRHEA; Start 01/27/19 at 18:15 Lactobacillus Rhamnosus (Culturelle) 1 cap BID PO Last administered on 01/28/19at 08:31; Start 01/28/19 at 09:00 Active Scripts Active Flovent 110MCG Hfa (Fluticasone Propionate) 12 Gm Aer.w.adap 2 Puff IH BID 30 Days Combivent Respimat Inhal (Ipratropium/Albuterol Sulfate) 4 Gm Aer.w.adap 2 Inh IH QID 30 Days Montelukast Sodium Tablet (Montelukast Sodium) 10 Mg Tablet 10 Mg PO QHS 30 Days Reported Percocet 5-325 Mg Tablet (Oxycodone/Acetaminophen) 1 Each Tablet 1-2 Tab PO PRN Q6HRS PRN LAST DOSE GIVEN: Fish Oil 1,200 Mg Fish Oil (Fish Oil/Dha/Epa) 1 Each Capsule 1 Each PO Garlic 1,000 Mg Capsule 1,000 Mg PO Hydrochlorothiazide Tablet (Hydrochlorothiazide) 25 Mg Tablet 25 Mg PO DAILY Bupropion Xl (Bupropion Hcl) 300 Mg Tab.er.24h 300 Mg PO Lamotrigine 100 Mg Tablet 100 Mg PO DAILY Alprazolam 1 Mg Tablet 1 Mg PO PRN Q6HRS PRN Meloxicam 15 Mg Tablet 15 Mg PO DAILY Trazodone Hcl 150 Mg Tablet 150 Mg PO HS Vitals/I & O Vital Sign - Last 24 Hours 01/27/19 01/27/19 01/27/19 01/27/19 11:00 13:40 15:00 16:51 Temp 97.7 98.4 97.7 98.4 Pulse 71 82 Resp 16 12 B/P (MAP) 151/73 (99) 137/71 (93) Pulse Ox 96 97 99 O2 Delivery Room Air Room Air Room Air Room Air 01/27/19 01/27/19 01/27/19 01/27/19 19:07 19:34 19:34 19:45 Temp 97.8 97.8 Pulse 85 Resp 16 B/P (MAP) 134/84 (101) Pulse Ox 98 O2 Delivery Room Air Room Air Room Air Room Air 01/27/19 01/28/19 01/28/19 01/28/19 22:41 03:14 06:13 07:00 Temp 97.8 98.0 98.0 97.8 98.0 98.0 Pulse 92 81 84 Resp 16 16 16 B/P (MAP) 103/62 (76) 108/69 (82) 125/74 (91) Pulse Ox 93 97 90 O2 Delivery Room Air Room Air Room Air Room Air Intake and Output 01/27/19 01/27/19 01/28/19 15:00 23:00 07:00 Intake Total 240 ml 0 ml 400 ml Output Total 150 ml Balance 90 ml 0 ml 400 ml JOHNNY MARVIN MD January 28, 2019 11:12
--- NOTE | 2019-01-28 11:43 | PDOC3 ---
Discharge Summary Visit Information Date of Admission: February 25, 2019 Date of Discharge: January 28, 2019 Admitting Diagnosis: Chest pain Final Diagnosis Acute bronchitis Brief Hospital Course Allergies Allergies Coded Allergies Type Severity Reaction Last Updated Verified levofloxacin Adverse Reaction Unknown Joint pain. 10/22/18 Yes Vital Signs Vital Signs Date Time Temp Pulse Resp B/P (MAP) Pulse Ox O2 Delivery O2 Flow Rate FiO2 01/28/19 11:00 98.0 91 16 149/73 (98) 95 Room Air 98.0 Lab Results Laboratory Tests Test 01/26/19 17:35 01/26/19 22:20 01/27/19 01:40 01/27/19 10:22 White Blood Count 12.2 x10^3/uL (4.0-11.0) 10.1 x10^3/uL (4.0-11.0) Red Blood Count 4.48 x10^6/uL (3.50-5.40) 4.01 x10^6/uL (3.50-5.40) Hemoglobin 14.4 g/dL (12.0-15.5) 13.0 g/dL (12.0-15.5) Hematocrit 42.5 % (36.0-47.0) 38.5 % (36.0-47.0) Mean Corpuscular Volume 95 fL (79-100) 96 fL (79-100) Mean Corpuscular Hemoglobin 32 pg (25-35) 32 pg (25-35) Mean Corpuscular Hemoglobin Concent 34 g/dL (31-37) 34 g/dL (31-37) Red Cell Distribution Width 13.2 % (11.5-14.5) 13.2 % (11.5-14.5) Platelet Count 328 x10^3/uL (140-400) 286 x10^3/uL (140-400) Neutrophils (%) (Auto) 67 % (31-73) 46 % (31-73) Lymphocytes (%) (Auto) 27 % (24-48) 46 % (24-48) Monocytes (%) (Auto) 6 % (0-9) 7 % (0-9) Eosinophils (%) (Auto) 0 % (0-3) 1 % (0-3) Basophils (%) (Auto) 0 % (0-3) 0 % (0-3) Neutrophils # (Auto) 8.1 x10^3uL (1.8-7.7) 4.7 x10^3uL (1.8-7.7) Lymphocytes # (Auto) 3.3 x10^3/uL (1.0-4.8) 4.6 x10^3/uL (1.0-4.8) Monocytes # (Auto) 0.7 x10^3/uL (0.0-1.1) 0.7 x10^3/uL (0.0-1.1) Eosinophils # (Auto) 0.0 x10^3/uL (0.0-0.7) 0.1 x10^3/uL (0.0-0.7) Basophils # (Auto) 0.1 x10^3/uL (0.0-0.2) 0.0 x10^3/uL (0.0-0.2) Prothrombin Time 11.6 SEC (11.7-14.0) Prothromb Time International Ratio 0.9 (0.8-1.1) Activated Partial Thromboplast Time 29 SEC (24-38) D-Dimer ([place]lem) < 0.27 ug/mlFEU Urine Collection Type Unknown Unknown Urine Color Yellow Yellow Urine Clarity Clear Clear Urine pH 8.0 7.5 Urine Specific [place] <=1.005 1.015 Urine Protein Negative mg/dL (NEG-TRACE) Negative mg/dL (NEG-TRACE) Urine Glucose (UA) Negative mg/dL (NEG) Negative mg/dL (NEG) Urine Ketones (Stick) Negative mg/dL (NEG) Negative mg/dL (NEG) Urine Blood Trace (NEG) Small (NEG) Urine Nitrite Negative (NEG) Positive (NEG) Urine Bilirubin Negative (NEG) Negative (NEG) Urine Urobilinogen Dipstick 0.2 mg/dL (0.2 mg/dL) 0.2 mg/dL (0.2 mg/dL) Urine Leukocyte Esterase Trace (NEG) Small (NEG) Urine RBC 0 /HPF (0-2) 1-2 /HPF (0-2) Urine WBC Rare /HPF (0-4) 5-10 /HPF (0-4) Urine Squamous Epithelial Cells Few /LPF Urine Bacteria 0 /HPF (0-FEW) Many /HPF (0-FEW) Sodium Level 127 mmol/L (136-145) 132 mmol/L (136-145) Potassium Level 4.3 mmol/L (3.5-5.1) 3.5 mmol/L (3.5-5.1) Chloride Level 91 mmol/L (98-107) 94 mmol/L (98-107) Carbon Dioxide Level 31 mmol/L (21-32) 30 mmol/L (21-32) Anion Gap 5 (6-14) 8 (6-14) Blood Urea Nitrogen 9 mg/dL (7-20) 9 mg/dL (7-20) Creatinine 0.8 mg/dL (0.6-1.0) 0.7 mg/dL (0.6-1.0) Estimated GFR (Cockcroft-Gault) 74.2 86.6 Glucose Level 114 mg/dL (70-99) 105 mg/dL (70-99) Calcium Level 9.6 mg/dL (8.5-10.1) 8.8 mg/dL (8.5-10.1) Total Bilirubin 0.4 mg/dL (0.2-1.0) 0.5 mg/dL (0.2-1.0) Direct Bilirubin 0.1 mg/dL (0.0-0.2) Aspartate Amino Transf (AST/SGOT) 20 U/L (15-37) 15 U/L (15-37) Alanine Aminotransferase (ALT/SGPT) 20 U/L (14-59) 19 U/L (14-59) Alkaline Phosphatase 84 U/L (46-116) 68 U/L (46-116) Troponin I Quantitative 0.019 ng/mL (0.000-0.055) 0.021 ng/mL (0.000-0.055) 0.039 ng/mL (0.000-0.055) Total Protein 7.7 g/dL (6.4-8.2) 6.4 g/dL (6.4-8.2) Albumin 4.3 g/dL (3.4-5.0) 3.6 g/dL (3.4-5.0) Lipase 76 U/L (73-393) BUN/Creatinine Ratio 13 (6-20) Albumin/Globulin Ratio 1.3 (1.0-1.7) Triglycerides Level 73 mg/dL (0-150) Cholesterol Level 212 mg/dL (0-200) LDL Cholesterol, Calculated 134 mg/dL (0-100) VLDL Cholesterol, Calculated 15 mg/dL (0-40) Non-HDL Cholesterol Calculated 149 mg/dL (0-129) HDL Cholesterol 63 mg/dL (40-60) Cholesterol/HDL Ratio 3.4 Thyroid Stimulating Hormone (TSH) 0.877 uIU/mL (0.358-3.74) Brief Hospital Course Pleasant 58 yo female w/ PMHx anxiety, s/p breast implants admitted for complains of chest pain and diarrhea. Reports that she has been having some pain around her breast implants and actually reproducible with palpation to her anterior chest and and breast circumscribe region. She was supposed to have MRI for her breast implant to see if there is any defect or leakage and she has been anxious about this in the last 3 days, but has not been approved. Pain is left sided, aching. No KLEIN or exertional chest pain and able to do her ADLs without difficulty. Yesterday afternoon she had 6 loose stools as well. She felt exhausted after that and that is when her SOA increased and also had some chest tightness and nausea. Denies any jaw tightness or arm heaviness. No changes in her diet. bedside states she stops breathing frequently in the middle of the night. She smokes tobacco otherwise no ETOH or recreational drugs. Denies any palpitations. No fever, chills or any recent antibiotic therapy. 5/1: Had worsening respiratory distress this morning and dysuria, positive UA. Completed echo, seen by cardiology, was ruled out for ACS. She is asking for coffee, states she feels much less short of breath after duonebs. Confirmed UTI and bronchitis. Chest pain - mixed features. Appears to be ruled out ACS. Most likely combination of MSK and bronchitis, though also could be related to her breast implants. Diarrhea/nausea - has an outpt GI referral with Dr. Devi for colon screening Hx of bilateral breast implants - denied outpt MRI, does need this cared for, would recommend PCP to consult plastic surgery HTN - on HCTZ at home. 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 The left ventricular systolic function is normal and the ejection fraction is within normal range. The Ejection Fraction is 50-55%. There is no significant aortic valvular stenosis. Doppler and Color Flow revealed no significant aortic regurgitation. Doppler and Color-flow revealed trace mitral regurgitation. Doppler and Color Flow revealed trace tricuspid valve regurgitation noted with an estimated PAP of 30 mmHg. Discharge Information Condition at Discharge: Improved Follow Up: Weeks (2) Disposition/Orders: D/C to Home Scheduled Fluticasone Propionate (Flovent 110MCG Hfa) 12 Gm Aer.w.adap, 2 PUFF IH BID for bronchitis/copd for 30 Days, #1 Ref 2 Prescribed by: JOHNNY MARVIN MD on 01/27/19 1326 Hydrochlorothiazide (Hydrochlorothiazide Tablet ) 25 Mg Tablet, 25 MG PO DAILY for DIURETIC, Ref 0 (Reported) Entered as Reported by: PRAVEEN HERNANDEZ on 08/12/181048 Last Action: Continued on 01/26/192200 by JOEL SHOEMAKER Ipratropium/Albuterol Sulfate (Combivent Respimat Inhal) 4 Gm Aer.w.adap, 2 INH IH QID for Bronchitis/COPD for 30 Days, #1 Ref 3 Prescribed by: JOHNNY MARVIN MD on 01/27/19 1326 Lamotrigine (Lamotrigine) 100 Mg Tablet, 100 MG PO DAILY, (Reported) Entered as Reported by: PRAVEEN HERNANDEZ on 08/12/181048 Last Action: Converted on 01/26/192200 by JOEL SHOEMAKER Meloxicam (Meloxicam) 15 Mg Tablet, 15 MG PO DAILY, (Reported) Entered as Reported by: PRAVEEN HERNANDEZ on 08/12/181048 Last Action: Converted on 01/26/192200 by JOEL SHOEMAKER Montelukast Sodium (Montelukast Sodium Tablet) 10 Mg Tablet, 10 MG PO QHS for allergic rhinitis for 30 Days, #30 Ref 3 Prescribed by: JOHNNY MARVIN MD on 01/27/19 1326 Trazodone Hcl (Trazodone Hcl) 150 Mg Tablet, 150 MG PO HS, (Reported) Entered as Reported by: PRAVEEN HERNANDEZ on 08/12/18 104 Last Action: Converted on 01/26/192200 by JOEL SHOEMAKER Scheduled PRN Alprazolam (Alprazolam) 1 Mg Tablet, 1 MG PO PRN Q6HRS PRN for ANXIETY / AGITATION, Ref 0 (Reported) Entered as Reported by: PRAVEEN HERNANDEZ on 08/12/18 104 Last Action: Continued on 01/26/192200 by JOEL SHOEMAKER Oxycodone/Apap 5-325 (Percocet 5-325 Mg Tablet ) 1 Each Tablet, 1-2 TAB PO PRN Q6HRS PRN for PAIN, #30 Ref 0 (Reported) LAST DOSE GIVEN: Entered as Reported by: JOSÉ MANUEL HYLTON on 10/22/18 1022 Last Action: Continued on 01/26/192200 by JOEL SHOEMAKER Miscellaneous Medications Bupropion Hcl (Bupropion Xl) 300 Mg Tab.er.24h, 300 MG PO, (Reported) Entered as Reported by: PRAVEEN HERNANDEZ on 08/12/18 104 Last Action: Converted on 01/26/192200 by JOEL SHOEMAKER Fish Oil/Dha/Epa (Fish Oil 1,200 Mg Fish Oil) 1 Each Capsule, 1 EACH PO, (Repo rted) Entered as Reported by: PRAVEEN HERNANDEZ on 08/12/18 104 Last Action: HELD on 01/26/192200 by JOEL SHOEMAKER Garlic (Garlic) 1,000 Mg Capsule, 1,000 MG PO, (Reported) Entered as Reported by: PRAVEEN HENRANDEZ on 08/12/18 1049 Last Action: HELD on 01/26/192200 by JOHNNY ANDERSEN MD January 28, 2019 11:43
== END 2019-01-28 12:36 | disposition home or self-care (01) | DRG 202 ==
LOC: ER 16:00 → 2 NORTH 16:01 → OBSVTOIN 01-27 15:55 → UNDODISOB 01-28 12:36
PROVIDERS: ADMIT Internal Medicine; ATTEND Internal Medicine
DX: J20.9 Acute bronchitis, unspecified (principal); N39.0 Urinary tract infection, site not specified; I20.9 Angina pectoris, unspecified; E66.9 Obesity, unspecified; Z68.30 Body mass index [BMI] 30.0-30.9, adult; Z83.3 Family history of diabetes mellitus; F17.210 Nicotine dependence, cigarettes, uncomplicated; I10 Essential (primary) hypertension; F41.9 Anxiety disorder, unspecified; R19.7 Diarrhea, unspecified; R91.1 Solitary pulmonary nodule; R53.83 Other fatigue; Z98.890 Other specified postprocedural states; Z79.899 Other long term (current) drug therapy; Z88.8 Allergy status to other drugs, medicaments and biological substances
CPT/HCPCS: 36415; 71045; 80048; 80053; 80061; 80076; 81001; 83690; 84443; 84484; 85025; 85379; 85610; 85730; 87086; 87186; 93005; 93306; 94640; 96372; 96374; 96375; 99284; 99406; G0378; G0379; J0696; J1650; J2930; J7512; J7620; J7626

== ENCOUNTER → 2019-03-11 | Day surgery (SDC) | payer BC ==
[~2019-03-11] MED LIST changes: +FLUT12AE IH; +HYDROmorphone 2 MG/ML VIAL IV PRN; +IPRA4AER IH; +IV RINGERS,LACTATED 1000ML 1,000 ML IV SCH; +LIDOCAINE 1% PF 2 ML VIAL. ID PRN; +MONT10TA49 PO; +MORPHINE SULFATE 2 MG/ML VIAL. IV PRN; +ONDANSETRON PF 4 MG/2 ML VIAL. IV PRN; +PROCHLORPERAZINE 10 MG/2 ML VIAL. IV PRN; +PROPOFOL 40 ML IV ONE; +fentaNYL PF VIAL 100 MCG/2 ML VIAL IV PRN
[2019-03-11 13:18] VITALS: BP 122/60
== END ==
LOC: ENDOS 11:29
PROVIDERS: ATTEND Internal Medicine Gastroenterology
DX: Z12.11 Encounter for screening for malignant neoplasm of colon (principal); K64.0 First degree hemorrhoids; F41.9 Anxiety disorder, unspecified; F32.9 Major depressive disorder, single episode, unspecified; M19.90 Unspecified osteoarthritis, unspecified site; Z83.3 Family history of diabetes mellitus; Z82.49 Family history of ischemic heart disease and other diseases of the circulatory system; Z79.899 Other long term (current) drug therapy; Z98.890 Other specified postprocedural states
CPT/HCPCS: 45378; J2704